=== PATIENT | female | born 1965 | race Caucasian/White ===

== ENCOUNTER → 2023-06-28 13:27 | Outpatient (BNV) | payer BC, SELFPAY | PROVIDERS: PCP Internal Medicine; Referring Provider Internal Medicine; Visit Provider Internal Medicine Medical Oncology | DX: D50.9 Iron deficiency anemia, unspecified (principal) | CPT/HCPCS: 99204 ==

== ENCOUNTER 2024-04-05 08:33 | Outpatient (REF) | payer BC, SELFPAY ==
--- OUTSIDE RECORDS SUMMARY | 2024-04-05 08:36 | XMS_ITS ---
Author Organization Olvin Lechuga DO [facility] Address [address] [place] [phone] Care Team Providers Care Electric Meter Tester Helper Name Role Phone Olvin Lechuga Primary Care Provider [phone] REASON FOR VISIT Message to self Encounters Encounter Location Date Provider Diagnosis Olvin Lechuga DO, [address]AC[address] [phone] 04/08/2023 Olvin Lechuga PLAN OF TREATMENT No Information
--- OUTSIDE RECORDS SUMMARY | 2024-04-05 08:36 | XMS_ITS | Patient Health Record ---
Author Organization Olvin Lechuga DO, FACP Address [address] [place] [phone] Care Team Providers Care Coal Sample Tester Name Role Phone Olvin Lechuga Primary Care Provider ALLERGIES Allergen (clinical drug ingredient) Drug/Non Drug Allergy documented on EMR Reaction Allergy Type Onset Date Status Penicillin urticaria Drug Allergy Active RESULTS Component Value Reference Range Notes Complete Blood Count Man Dif Reviewed date:06/28/2023 05:18:47 PM Interpretation:Abnormal Performing Lab:[facility], [address] [place] [phone] Notes/Report: White Blood Count 8.5 4.8-10.8 X10*3/uL Red Blood Count 4.78 4.20-5.50 X10*6/uL Hemoglobin 12.1 12.0-16.0 g/dl Hematocrit 38.9 37.0-47.0 % Mean Corpuscular Volume 81.4 80.0-98.0 fL Mean Corpuscular Hemoglobin 25.3 27.0-33.0 pg Mean Corpuscular HGB Conc 31.1 31.0-35.0 g/dl Red Cell Distribution Width 17.8 11.0-16.0 % Platelet Count 280 160-400 X10*3/uL Mean Platelet Volume 9.7 9.4-12.3 fL NRBC Pct Auto 0.0 0.0-0.2 /100WBC NRBC Abs Auto 0.000 0.0-0.012 X10*3/uL Neutrophils Percent Manual 79 45-73 % Band Neutrophils Percent 0 3-5 % Lymphocytes Percent Manual 15 20-40 % Monocytes Percent Manual 5 2-11 % Eosinophils Percent Manual 1 0-4 % Neutrophils Absolute Manual 6.7 2.0-8.3 X10*3 /uL Lymphocytes Absolute Manual 1.3 1.2-4.9 X10*3 /uL Monocytes Absolute Manual 0.4 0.1-1.2 X10*3/u L Eosinophils Absolute Manual 0.1 0.0-0.4 X10*3 /uL Hypersegmented Neutrophils PRESENT Platelet Estimate NORMAL NORMAL Platelet Morphology Comment NORMAL RBC Morphology NOTED Microcytosis 1+ (5-14) Ovalocytes 1+ (5-14) RETIC Reviewed date:06/28/2023 05:18:47 PM Interpretation:Abnormal Performing Lab:[address] [phone] Notes/Report: Reticulocytes Absolute 0.101 0.026-0.095 X10*6/ uL Immature Retic Fraction 17.6 3.0-15.9 % Retic HGB Equivalent 31.2 30.0-35.0 pg Reticulocyte Percent 2.1 0.5-1.8 % Comprehensive Met. Panel Reviewed date:06/28/2023 05:18:47 PM Interpretation:Abnormal Performing Lab:[address] [phone] Notes/Report: Sodium 140 135-145 mmol/L Potassium 4.2 3.3-5.1 mmol/L Slight Hemoly sis Chloride 109 96-108 mmol/L Carbon Dioxide 21 22-29 mmol/L Anion Gap 14 12-20 Blood Urea Nitrogen 14 9-16 mg/dL Creatinine 0.80 0.5-1.4 mg/dL Creatinine Clr Calc Pharmacy 92.9 Provided height and weight: 165.1 cm, 106.5 kg. eGFR (calculated from the MDRD study equation) and eCrCl (calculated from the Cockcroft-Gault equation) are based on different parameters and may not yield comparable results. If eCrCl result is absurd, please check patient's height/weight. Estimated Glomerular Filt Rate > 60 NOTE: For -Haitian individuals, multiply the result by 1.210. Chronic Kidney Disease: Estimated GFR < 60 mL/min/1.73m2 Severe Kidney Disease: Estimated GFR < 15 mL/min/1.73m2 Glucose Random 127 60-115 mg/dL Calcium 9.3 8.4-10.2 mg/dL Bilirubin Total 0.2 0.0-1.0 mg/dL Aspartate Amino Transferase 23 5-31 U/L Slight Hemolysis Alanine Aminotransferase 23 0-31 U/L Total Protein 7.2 6.5-8.0 g/dL Albumin Level 4.2 3.5-5.0 g/dL Alkaline Phosphatase 79 39-117 U/L IRON PROFILE Reviewed date:06/28/2023 05:18:47 PM Interpretation:Normal Performing Lab:[facility], [address] [place] [phone] Notes/Report: Iron 52 30-160 mcg/dL Total Iron Binding Capacity 347 228-428 mcg/d L Percent Iron Saturation 15 15-50 % Unsaturated Iron Binding 295 Ferritin Reviewed date:06/28/2023 05:18:47 PM Interpretation:Normal Performing Lab:[facility], [address] [place] [phone] Notes/Report: Ferritin 17 10-250 ng/mL Lactate Dehydrogenase Reviewed date:06/28/2023 05:18:47 PM Interpretation:Abnormal Performing Lab:[facility], [address] [place] [phone] Notes/Report: Lactate Dehydrogenase 274 122-220 U/L Slight Hemolysis Vitamin B12 and Folate Reviewed date:06/28/2023 05:18:47 PM Interpretation:Normal Performing Lab:[facility], [address] [place] [phone] Notes/Report: Vitamin B12 > 2000 200-900 pg/mL NORMAL 200-900 PG/ML INDETERMINATE 160-199 PG/ML DEFICIENT < 160 PG/ML Folate 11.1 > or = 4.0 ng/mL Reference Values: > or = 4.0 ng/mL < 4.0 ng/mL suggests folate deficiency Methotrexate, aminopterin and folinic acid (leucovorin) are chemotherapeutic agents whose molecular structures are similar to folate; therefore, the Personal Financial Counselor folate assay cannot be used for patients using these drugs. Transglutaminase IgA Reviewed date:06/29/2023 02:23:07 PM Interpretation:Negative Performing Lab:[facility], [address] [place] [phone] Notes/Report: Transglutaminase IgA <1.0 Value Interpretation ----- <15.0 Antibody not detected > or = 15.0 Antibody detected THIS TEST WAS PERFORMED AT: [facility] [address] [place] [phone] PAOLA ACHARYA MD REASON FOR REFERRAL Reason anemia Diagnosis 1 Iron deficiency anem ia, unspecified (D50.9) Diagnosis 2 Celiac disease (K90. 0) Referral Organization Olvin Herrera FACP Referring Provider First Name Olvin Referring Provider Last Name Ankush Referring Provider Speciality Internal edicine Referred Provider Brina Sequeira Referred Provider Specialty Hematology/O ncology General Notes Sara Macdonald 4 02:39:23 PM EST > Referral and notes faxed and they will contact patient per their office protocal. Patient is aware Referral Priority Routine Referral Appointment Date 04/23/2023 Reason Recurrent Iron Defic iency Anemia Diagnosis 1 Iron deficiency anem ia, unspecified (D50.9) Referral Organization Olvin Herrera FACP Referring Provider First Name Olvin Referring Provider Last Name Ankush Referring Provider Speciality Internal M edicine Referred Provider Jeffrey Ray Referred Provider Specialty Gastroentero logy General Notes PageSara 4 02:40:06 PM EST > Referral and notes faxed and per their office protocal the patient needs to contac that office for appointment and patient is aware. Referral Priority Routine Referral Appointment Date 04/30/2023 MEDICATIONS Medication SIG (Take, Route, Frequency, Duration) Notes Start Date End Date Status Ferrous Fumarate 325 (106 Fe) MG 1 tablet Orally Twice a day Active ARIPiprazole 30 MG 1 tablet Orally Once a day Active ALPRAZolam 0.5 MG 1 tablet at bedtime as needed Orally Once a day Active IMMUNIZATIONS Vaccine Route Administration Date Status Comme nts Influenza Quad IM Intramuscular 04/18/2017 Administered Influenza Quad Unknown 01/11/2020 Administered COVID-19 Moderna Vaccine Unknown 02/23/2021 Administere d COVID-19 Pfizer BioNTech Unknown 08/11/2021 Administere d COVID-19 Pfizer BioNTech Unknown 05/22/2020 Administere d Influenza Quad Unknown 12/16/2021 Administered COVID-19 Moderna Bivalent Unknown 12/16/2021 Administer ed COVID-19 Pfizer BioNTech Unknown 04/30/2020 Administere d Influenza Unknown 03/15/2016 Refused SOCIAL HISTORY Tobacco Use: Social History Observation Description Date Details (start date - stop date) Never Smoker NA - NA Sex Assigned At : Social History Observation Description Sex Assigned At Unknown Tobacco Use/Smoking Question Answer Notes Patient is a nonsmoker Additional Findings: Tobacco Non-User Cu rrent non-smoker, currently using no form of tobacco Alcohol Screen Question Answer Notes Did you have a drink contain ing alcohol in the past year? Yes How often did you have a dri nk containing alcohol in the past year? 2 to 4 times a month (2 points) How many drinks did you have on a typical day when you were drinking in the past year? 1 or 2 drinks (0 point) How often did you have 6 or more drinks on one occasion in the past year? Never (0 point) Points 2 Interpretation Negative PROBLEMS Problem Type ICD Code Onset Dates Problem Status W/U Status Risk SNOMED Code Notes Problem Iron deficiency anemia, unspecified (D50.9) Active confirmed Iron deficiency anemia (09403635) Problem Morbid (severe) obesity due to excess calories (E66.01) Active confirmed [id number] Problem Celiac disease (K90.0) Active confirmed Celiac disease (883892236) Problem Non morbid obesity d ue to excess calories (E66.09) Active confirmed Obesity (165132249) Problem Iron deficiency anemia, unspecified iron deficiency anemia type (D50.9) Active confirmed 09724208 Problem Hypercholesterolemia (E78.00) Active confirmed 18698715 Problem Bipolar 1 disorder, manic, full remission (F31.74) Active confirmed 29730690 Problem Celiac disease/sprue (K90.0) Active confirmed 520397471 Problem Body mass index [BMI ] 40.0-44.9, adult (Z68.41) Active confirmed 326501523 VITAL SIGNS Blood pressure diastolic 70 mm Hg 04/17/2023 Height 64.25 in 04/17/2023 Blood pressure systolic 130 mm Hg 04/17/2023 Weight 246 lbs 04/17/2023 BMI 41.89 kg/m2 04/17/2023 Encounters Encounter Location Date Provider Diagnosis Olvin Lechuga DO, FACP [address] [place] [phone] 04/17/2023 Olvin Lechuga Encounter for genera l adult medical examination without abnormal findings Z00.00 ; Iron deficiency anemia, unspecified iron deficiency anemia type D50.9 ; Celiac disease/sprue K90.0 ; Hypercholesterolemia E78.00 ; Morbid (severe) obesity due to excess calories E66.01 ; Body mass index [BMI] 40.0-44.9, adult Z68.41 and Bipolar 1 disorder, manic, full remission F31.74 Olvin Lechuga DO, [facility] [address] [place], [place] [phone] 10/10/2023 Olvin Lechuga DO, [facility] [address] [place], [place] [phone] 04/08/2023 Olvin Lechuga ASSESSMENTS Encounter Date Diagnosis Assessment Notes Treatment Notes Treatment Clinical Notes 04/17/2023 Encounter for genera l adult medical examination without abnormal findings (ICD-10 - Z00.00) 04/17/2023 Iron deficiency anem ia, unspecified iron deficiency anemia type (ICD-10 - D50.9) Heme/Onc referral to Dr. Sequeira 04/17/2023 Celiac disease/sprue (ICD-10 - K90.0) GI referral to Dr. Ray 04/17/2023 Hypercholesterolemia (ICD-10 - E78.00) Low cholesterol diet 04/17/2023 Morbid (severe) obes ity due to excess calories (ICD-10 - E66.01) Diet, portion control, exercise, weight loss. Advised to lose 15 pounds. Advised to limit carbohydrates and avoid sweets 04/17/2023 Body mass index [BMI ] 40.0-44.9, adult (ICD-10 - Z68.41) Diet, exercise, weight loss 04/17/2023 Bipolar 1 disorder, manic, full remission (ICD-10 - F31.74) PLAN OF TREATMENT Pending Test Test Name Order Date MAMMOGRAM DIGITAL BILATERAL SCREEN G0202 04/17/2023 Insurance Providers Payer Name Payer Address Payer Phone Subscriber Number Group Number Insured Name Patient Relationship to Insured Coverage Start Date Coverage End Date [facility] [address] [place], [place] [phone] [id number] Ирина Luna Self - patient is the insured MEDICAL (GENERAL) HISTORY Medical History History ICD Code bipolar affective disorder obesity hypercholesterolemia Iron deficiency anemia, unspecified iron deficiency anemia type D50.9 celiac sprue Surgical History Surgery Date(Month/Year) wisdom teeth extraction cervical cryotherapy due to cervical dys plasia
--- OUTSIDE RECORDS SUMMARY | 2024-04-05 08:36 | XMS_ITS ---
Author Organization Olvin Lechuga DO, FACP Address [address] [place] [phone] Care Team Providers Care Front Maker Name Role Phone Olvin Lechuga Primary Care Provider REASON FOR VISIT 6 month f/u Encounters Encounter Location Date Provider Diagnosis Olvin Lechuga DO [address] [phone] 10/10/2023 Olvin Lechuga PLAN OF TREATMENT No Information
--- OUTSIDE RECORDS SUMMARY | 2024-04-05 08:37 | XMS_ITS ---
Author Organization Olvin Lechuga DO, FACP Address [address] [place], [place] [phone] Care Team Providers Care Drop Pit Worker Name Role Phone Olvin Lechuga Primary Care Provider [phone] ALLERGIES Allergen (clinical drug ingredient) Drug/Non Drug Allergy documented on EMR Reaction Allergy Type Onset Date Status Penicillin urticaria Drug Allergy Active REASON FOR VISIT physical, annual visit MEDICATIONS Medication SIG (Take, Route, Frequency, Duration) Notes Start Date End Date Status Ferrous Fumarate 325 (106 Fe) MG 1 tablet Orally Twice a day Active ARIPiprazole 30 MG 1 tablet Orally Once a day Active ALPRAZolam 0.5 MG 1 tablet at bedtime as needed Orally Once a day Active SOCIAL HISTORY Tobacco Use: Social History Observation [...] W/U Status Risk SNOMED Code Notes Problem Morbid (severe) obesity due to excess calories (E66.01) Active confirmed [id number] Problem Body mass index [BMI] 40.0-44.9, adult (Z68.41) Active confirmed 222751439 VITAL SIGNS BMI 41.89 kg/m2 04/17/2023 Blood pressure systolic 130 mm Hg 04/17/19 24 Blood pressure diastolic 70 mm Hg 024 Height 64.25 in 04/17/2023 Weight 246 lbs 04/17/2023 Encounters Encounter Location Date Provider Diagnosis Olvin Lechuga , [address] [phone] 04/17/2023 Olvin Lechuga Encounter for genera l adult medical examination without abnormal findings Z00.00 ; Iron deficiency anemia, unspecified iron deficiency anemia type D50.9 ; Celiac disease/sprue K90.0 ; Hypercholesterolemia E78.00 ; Morbid (severe) obesity due to excess calories E66.01 ; Body mass index [BMI] 40.0-44.9, adult Z68.41 and Bipolar 1 disorder, manic, full remission F31.74 ASSESSMENTS Encounter Date Diagnosis Assessment Notes Treatment [...] remission (ICD-10 - F31.74) PLAN OF TREATMENT Medication Medication Name Sig Start Date Stop Date Notes Ferrous Fumarate 325 (106 Fe) MG 1 table t Orally Twice a day ARIPiprazole 30 MG 1 tablet Orally Once a day ALPRAZolam 0.5 MG 1 tablet at bedtime as needed Orally Once a day Treatment Notes Assessment Notes Iron deficiency anemia, unsp ecified iron deficiency anemia type Heme/Onc referral to Dr. Sequeira Celiac disease/sprue GI referral to Dr. Ray Hypercholesterolemia Low cholesterol t Morbid (severe) obesity due to excess ca lories Diet, portion control, exercise, weight loss. Advised to lose 15 pounds. Advised to limit carbohydrates and avoid sweets Body mass index [BMI] 40.0-44.9, adult D iet, exercise, weight loss Pending Test Test Name Order Date MAMMOGRAM DIGITAL BILATERAL SCREEN G0202 04/17/2023 Next Appt Details Follow Up: 6 Months, Reason: follow up visit Progress Notes * Examination Category Sub-Category Detail Notes General Examination GENERAL APPEARANCE: well dev eloped, well nourished, in no acute distress HEAD: normocephalic, atrau matic EYES: pupils equal, round, reactive to light and accommodation, sclera non-icteric EARS: normal THROAT: clear NECK/THYROID: neck supple, full ra nge of motion, no cervical lymphadenopathy, thyroid normal, no carotid bruit HEART: regular rate and rhy thm, S1, S2 normal, no murmurs LUNGS: clear to auscultatio n bilaterally ABDOMEN: soft, nontender, non distended, bowel sounds present, normal NEUROLOGIC: nonfocal, motor stre ngth normal upper and lower extremities, sensory exam intact SKIN: warm and dry EXTREMITIES: no edema PERIPHERAL PULSES: 2+ dorsalis pedis, 2 + posterior tibial BREASTS: per LINER WORKER PSYCH: alert, oriented, cog nitive function intact FEMALE GENITOURINARY: per LINER WORKER ORAL CAVITY: mucosa moist History and Physical Notes * HPI (History of Present Illness) Category Sub-Category Detail Notes Depression Screening PHQ-9 Little inte rest or pleasure in doing things: Not at all Feeling down, depressed, or hopeless: No t at all Trouble falling or staying asleep, or sl eeping too much: Not at all Feeling tired or having little energy: N ot at all Poor appetite or overeating: Not at all Feeling bad about yourself o r that you are a failure, or have let yourself or your family down: Not at all Trouble concentrating on thi ngs, such as reading the newspaper or watching television: Not at all Moving or speaking so slowly that other people could have noticed; or the opposite, being so fidgety or restless that you have been moving around a lot more than usual: Not at all Thoughts that you would be b aster off or of hurting yourself in some way: Not at all Total Score: 0 Interpretation and Intervention Depression Ben zimmerman Findings: Negative Follow-Up for Depression: : Review of PH Q-9 found negative result; no follow-up needed Fall Risk Fall History Have you had two or more fal ls in the past year?: No Have you had any falls with injury in th e past year?: No Fall Risk Assessment:: No falls in the p ast year Communication Needs PCMH Communication Needs - PCM Silverio severino Impairment?: No Vision Impairment?: Yes wears glasses fo r distance Cognitive Impairment?: No SDOH Questions SDOH Questions In the past year have you been worried about losing your housing?: No In the past year have you or any family members you live with been unable to get any of the following when it was really needed? Check all that apply:: None
[2024-04-05 11:15] LABS: MANUAL DIFF FLAG NO
[2024-04-05 11:18] LABS: Basophils Percent Auto 0.7 % (0-2); Eosinophils Absolute Auto 0.2 X10*3/uL (0.0-0.4); Eosinophils Percent Auto 3.5 % (0-4); Hematocrit 42.1 % (37.0-47.0); Hemoglobin 13.3 g/dl (12.0-16.0); Imm Gran Abs Auto 0.01 X10*3/uL (0.00-0.03); Imm Gran Pct Auto 0.2 % (0.0-0.4); Lymphocytes Percent Auto 17.1 % (20-40); Mean Corpuscular HGB Conc 31.6 g/dl (31.0-35.0); Mean Corpuscular Hemoglobin 28.7 pg (27.0-33.0); Mean Corpuscular Volume 90.9 fL (80.0-98.0); Mean Platelet Volume 9.5 fL (9.4-12.3); Monocytes Absolute Auto 0.5 X10*3/uL (0.1-1.2); Monocytes Percent Auto 7.9 % (2-11); Neutrophils Absolute Auto 4.2 x10*3/uL (2.0-8.3); Neutrophils Percent Auto 70.6 % (45-73); Platelet Count 271 X10*3/uL (160-400); Red Blood Count 4.63 X10*6/uL (4.20-5.50); Red Cell Distribution Width 15.2 % (11.0-16.0)
[2024-04-05 11:31] LABS: Estimated Average Glucose 88 mg/dL; Hemoglobin A1C 98.6978 umol/L; Hemoglobin A1c % 4.7 % (<6.0); Total Hemoglobin (HGBA1C) 3499.2098 umol/L
[2024-04-05 11:53] LABS: Alanine Aminotransferase 26 U/L (0-31); Albumin Level 4.2 g/dL (3.5-5.0); Alkaline Phosphatase 68 U/L (39-117); Anion Gap 12 (12-20); Aspartate Amino Transferase 22 U/L (5-31); Bilirubin Direct 0.1 mg/dL (0.0-0.5); Bilirubin Total 0.3 mg/dL (0.0-1.0); Blood Urea Nitrogen 13 mg/dL (9-16); Calcium 9.7 mg/dL (8.4-10.2); Carbon Dioxide 28 mmol/L (22-29); Chloride 109 mmol/L (96-108); Cholesterol 201 mg/dL (<200); Estimated Glomerular Filt Rate > 60; Glucose Fasting 88 mg/dL (60-99); HDL Cholesterol 57 mg/dL (>40); LDL Cholesterol Calculated 122 mg/dL (<100); Magnesium 2.2 mg/dL (1.6-2.6); Potassium 4.5 mmol/L (3.3-5.1); Sodium 144 mmol/L (135-145); Total Protein 7.3 g/dL (6.5-8.0); Triglycerides 114 mg/dL (<150)
[2024-04-05 11:55] LABS: TSH reflex Free T4 2.16 uIU/mL (0.32-4.0); Vitamin D 25-OH Total 38.9 ng/mL (>30)
[2024-04-05 12:13] LABS: Folate 8.1 ng/mL (> or = 4.0); Vitamin B12 1651 pg/mL (200-900)
== END 2024-04-05 08:34 | disposition home or self-care (01) ==
LOC: HO.HMGCLDS 08:33
PROVIDERS: PCP Internal Medicine; Visit Provider Physician Assistant Medical
DX: Z00.00 Encounter for general adult medical examination without abnormal findings (principal); Z13.1 Encounter for screening for diabetes mellitus; Z13.0 Encounter for screening for diseases of the blood and blood-forming organs and certain disorders involving the immune mechanism; Z13.220 Encounter for screening for lipoid disorders; Z13.29 Encounter for screening for other suspected endocrine disorder
CPT/HCPCS: 36415; 80053; 80061; 80076; 82306; 82607; 82746; 83036; 83735; 84443; 85025

== ENCOUNTER 2024-04-23 12:53 | Outpatient (AMB) | payer BC, SELFPAY ==
--- NOTE | 2024-04-23 12:46 | MHC.PC.OV ---
Vital Signs 04/23/24 12:48 Height 5 ft 4.25 in Weight 238 lb BMI 40.5 BP 152/82 H Blood Pressure Location Lt brachial Pulse 76 Pulse Source Pulse Oximeter Temp 97.3 F Pulse Oximetry (%) 99 Intake Visit Reasons: physical Intake Note: no other issues Allergies Penicillins Allergy (Intermediate, Verified 04/23/24 13:13) Hives Medication List - Last Reconciled 04/23/24 by Keesha Leyva PA-C alprazolam 0.5 mg PO DAILY PRN aripiprazole 30 mg PO DAILY ferrous sulfate 325 mg PO DAILY PFSH Medical History (Updated 04/23/24 @ 13:19 by Keesha Leyva PA-C) Morbid obesity Annual physical exam Elevated blood pressure reading History of mammogram (~03/16/22) Cervical dysplasia Bipolar affective disorder in full remission Hyperlipidemia Iron deficiency anemia Hypercholesteremia Surgical History History of colonoscopy (~05/03/17) H/O wisdom tooth extraction Family History Brother CHF (congestive heart failure) Diabetes mellitus Father Mother Social History Household Members: Family Patient Tobacco Use Status: Never used Tobacco service: No Current occupational status: employed Physical exam (Primary Care) Vital Signs: Last Vital Signs Temp 97.3 F 04/23/24 12:48 Pulse 76 04/23/24 12:48 BP 152/82 H 04/23/24 12:48 Pulse Ox 99 04/23/24 12:48 Care Plan Goal for BP management: 130/80. Will keep a diary for the next 2 weeks at home and monitor her blood pressure. She will return in 2 weeks with the readings of her blood pressure BMI result Body Mass Index 40.5 BMI Assessment/Plan discussion: High (Patient will improve her diet and exercise regimen.) BMI High, discussed plan: lifestyle, weight reduction, dietary, physical activity and alcohol moderation Tobacco/Smoking Status: Tobacco use Status Patient Tobacco Use Status Never used Tobacco 04/23/24 12:52 Coding Level of Care Code New Pt Prev Care 40-64y(69868) Diagnoses Bipolar affective disorder in full remission F31.70 Iron deficiency anemia D50.9 Hyperlipidemia E78.5 Hypercholesteremia E78.00 Microcytic hypochromic anemia D50.9 Elevated blood pressure reading R03.0 Annual physical exam Z00.00 Morbid obesity E66.01 Assessment & Plan Assessment & Plan (1) Bipolar affective disorder in full remission: Code(s): F31.70 - Bipolar disorder, currently in remission, most recent episode unspecified Category: Medical Plan: Patient to continue aripiprazole 30 mg daily. Condition is chronic and stable continue to monitor. (2) Iron deficiency anemia: Code(s): D50.9 - Iron deficiency anemia, unspecified Category: Medical Plan: Patient to continue ferrous sulfate 325 mg daily. Last H&H was normal on 04/05/2024. Patient had normal iron studies on 06/28/2023. Condition is chronic and stable continue current regimen. (3) Hyperlipidemia: Code(s): E78.5 - Hyperlipidemia, unspecified Category: Medical Plan: LDL goal <100. Last LDL was 122 on 04/05/2024. Total cholesterol 201 goal <200. Patient declining lower cholesterol medication at this time would like to improve her diet and exercise regimen. Patient will also improve her fiber intake. Condition is chronic and stable will continue to monitor (4) Hypercholesteremia: Code(s): E78.00 - Pure hypercholesterolemia, unspecified Category: Medical Plan: LDL goal <100. Last LDL was 122 on 04/05/2024. Total cholesterol 201 goal <200. Patient declining lower cholesterol medication at this time would like to improve her diet and exercise regimen. Patient will also improve her fiber intake. Condition is chronic and stable will continue to monitor. (5) Microcytic hypochromic anemia: Code(s): D50.9 - Iron deficiency anemia, unspecified Category: Medical Plan: Patient to continue ferrous sulfate 325 mg daily. Last H&H was normal on 04/05/2024. Patient had normal iron studies on 06/28/2023. Condition is chronic and stable continue current regimen. (6) Elevated blood pressure reading: Code(s): R03.0 - Elevated blood-pressure reading, without diagnosis of hypertension Category: Medical Plan: Blood pressure noted to be elevated today. Patient denies any cardiac related complaints. Patient will return in 2 weeks for blood pressure check. She will buy a blood pressure monitor and monitor her blood pressure daily or every other day and bring a diary back. Patient understands agrees with this plan. Will continue to monitor. (7) Annual physical exam: Code(s): Z00.00 - Encounter for general adult medical examination without abnormal findings Category: Medical (8) Morbid obesity: Code(s): E66.01 - Morbid (severe) obesity due to excess calories Category: Medical Plan: Patient to improve her diet and exercise regimen. Condition is chronic and stable continue to monitor. Plan Plan The elevated blood pressure reading noted today will be managed by initiating home blood pressure monitoring, to determine if it persists before considering antihypertensives. For hyperlipidemia, dietary measures such as increasing fiber intake and lifestyle adjustments will be the focus, postponing pharmacotherapy as cholesterol elevations are borderline. The patient's iron deficiency anemia is being managed with supplement use, and she reports some resultant changes in stool consistency; increasing dietary fiber as a non-pharmacological intervention was advocated. Management for generalized anxiety disorder remains unchanged and successful, with bipolar disorder stable and in remission. Reassessment of levels will continue, especially since previous levels were notably high. Regular monitoring and reassessment of these plans will continue on a follow-up basis, as well follow-up for the elevated cholesterol. Patient Instructions: Patient Instructions - Monitor blood pressure at home twice daily for two weeks; log the results. - Return for follow-up in two weeks with logged blood pressure results. - Increase dietary intake of high-fiber foods such as vegetables, fruits, and whole grains to help manage cholesterol and address gastrointestinal symptoms. - Continue current medications, adjusting vitamin B12 intake to a once-weekly schedule. - Contact the office if experiencing new or concerning symptoms, including chest pain or significantly elevated blood pressure readings. Scribe Plan - Not visible on output: History of Present Illness The patient is a 58-year-old female presenting for her annual physical examination. Her medical history reveals bipolar disorder managed and in full remission, generalized anxiety disorder, and iron deficiency anemia for which she receives iron supplementation. Recently, she has been diagnosed with hyperlipidemia, with her cholesterol being slightly above optimal levels, a deviation from her previous results. The patient had a colonoscopy in 2018 with a 10-year follow-up interval. Celiac disease was previously listed but tests confirmed incompatibility, negating its diagnosis. The patient noted gastrointestinal changes since commencing iron supplements, manifesting as loose stools. She is addressing this by including more dietary fiber. A single elevated blood pressure reading was documented today, potentially influenced by pre-visit activity, warranting home monitoring. Notably, other lab tests demonstrated normal ranges, dismissing additional concerns regarding blood glucose and diabetes. Additionally, the patient?s multivitamin regimen is being adjusted due to a previously elevated Vitamin B12 level. 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 - Family: , no children of her own, two stepchildren from her 's previous marriage. - Activity: Engages in exercise and is considering dietary changes to manage cholesterol and overall health. - Nutrition: Increasing intake of high-fiber foods to manage gastrointestinal symptoms potentially related to iron supplementation. Review of Systems - Gastrointestinal: Reports loose stools since starting iron supplements. - Cardiovascular: Denies chest pain, reports no chest pains or any symptoms of cardiovascular concerns beyond the noted elevated blood pressure. Physical Exam Appearance: Alert. Oriented X3. No acute distress. Head: Normal external exam. Normocephalic. Atraumatic. Eyes: Pupils are equal, round, and reactive to light. Extraocular movements intact. Conjunctiva and sclera normal. Eyelids normal. Ears: External auditory canal normal. Tympanic membranes normal. Throat: Pharynx normal. Uvula midline. Moist mucous membranes. Neck: Normal inspection. Neck supple. Full range of motion. No adenopathy. Thyroid Normal. No meningeal signs. No neck mass noted. Cardiovascular: Normal heart rate and rhythm. Heart sound normal. No murmurs noted. Pulses normal throughout. Respiratory: No respiratory distress. Painless inspiration. Breath sounds normal. No wheezes/rales/rhonchi noted. Chest nontender. No accessory muscle usage noted or decreased air movement noted. Abdomen: Soft and nontender. Bowel sounds normal in all 4 quadrants. No distention noted. No organomegaly noted. No visible injury noted. Back: No costovertebral angle tenderness. Full range of motion noted. Skin: Skin warm and dry. Normal skin color. Normal skin turgor. No rashes/lesions/lacerations noted. Extremities: No lower extremity edema. Extremities exhibit normal range of motion. Extremities nontender. Neuro: Oriented X 3. No motor deficit. No sensory deficit. Reflexes normal. Results - Labs: CBC normal, no evidence of anemia. Chemistry panel normal including fasting glucose and A1c indicating no diabetes. Cholesterol levels slightly above optimal with total cholesterol 201 mg/dL and LDL 122 mg/dL. Thyroid function, Vitamin B12, D, and folate normal. Patient was informed and verbally consented to the use of an ambient scribe for clinic note documentation during this visit. Discussion Notes During our discussion, I advised the patient on initiating home blood pressure monitoring due to a single elevated reading today, and the importance of accurate logging of these values for the next two weeks. We also discussed her hyperlipidemia, with suggestions for dietary and lifestyle changes to manage these levels conservatively at this time without starting medication. The patient expressed her preference for a non-pharmacological approach to her cholesterol management. For her gastrointestinal concerns associated with iron supplementation, I reassured her that her approach of increasing fiber intake is appropriate. A follow-up appointment is scheduled in two weeks to reassess blood pressure and overall progress on dietary changes. Additionally, the importance of periodic monitoring of her vitamin B12 levels was emphasized due to a history of elevated readings, with a continuation of a reduced dosage being beneficial.
[2024-04-23 12:48] VITALS: BP 152/82; PULSE 76; TEMP 36.3; O2SAT 99; BMI 40.5
--- OUTSIDE RECORDS SUMMARY | 2024-04-23 15:45 | XMS_ITS ---
Author Organization Olvin Lechuga DO, FACP Address [address] [place] [phone] Care Team Providers Care Inorganic Chemist Name Role Phone Olvin Lechuga Primary Care Provider [phone] REASON FOR VISIT 6 month f/u Encounters Encounter Location Date Provider Diagnosis Olvin Lechuga DO [facility] [phone] 10/10/2023 Olvin Lechuga PLAN OF TREATMENT No Information
--- OUTSIDE RECORDS SUMMARY | 2024-04-23 15:46 | XMS_ITS | Patient Health Record ---
Author Organization Olvin Lechuga DO, FACP Address [address] [place] [id number] Care Team Providers Care Retail Banking Manager Name Role Phone Olvin Lechuga Primary Care Provider [phone] ALLERGIES Allergen (clinical drug ingredient) Drug/Non Drug Allergy documented on EMR Reaction Allergy Type Onset Date Status Penicillin urticaria Drug Allergy Active RESULTS Component Value Reference Range Notes Complete Blood Count Man Dif Reviewed date:06/28/2023 05:18:47 PM Interpretation:Abnormal Performing Lab:[facility], [address] [place] [phone] Notes/Report: White Blood Count 8.5 4.8-10.8 X10*3/uL [...] RETIC Reviewed date:06/28/2023 05:18:47 PM Interpretation:Abnormal Performing Lab:[address] [phone] Notes/Report: Reticulocytes Absolute 0.101 0.026-0.095 X10*6/ uL Immature Retic Fraction 17.6 3.0-15.9 % Retic HGB Equivalent 31.2 30.0-35.0 pg Reticulocyte Percent 2.1 0.5-1.8 % Comprehensive Met. Panel Reviewed date:06/28/2023 05:18:47 PM Interpretation:Abnormal Performing Lab:[address] [phone] Notes/Report: Sodium 140 135-145 mmol/L Potassium 4.2 [...] Glomerular Filt Rate > 60 NOTE: For -Guyanese individuals, multiply the result by 1.210. Chronic [...] PROFILE Reviewed date:06/28/2023 05:18:47 PM Interpretation:Normal Performing Lab:[facility], [address] [place] [phone] Notes/Report: Iron 52 30-160 mcg/dL Total Iron Binding Capacity 347 228-428 mcg/d L Percent Iron Saturation 15 15-50 % Unsaturated Iron Binding 295 Ferritin Reviewed date:06/28/2023 05:18:47 PM Interpretation:Normal Performing Lab:[facility], [address] [place] [phone] Notes/Report: Ferritin 17 10-250 ng/mL Lactate Dehydrogenase Reviewed date:06/28/2023 05:18:47 PM Interpretation:Abnormal Performing Lab:[facility], [address] [place] [phone] Notes/Report: Lactate Dehydrogenase 274 122-220 U/L Slight Hemolysis Vitamin B12 and Folate Reviewed date:06/28/2023 05:18:47 PM Interpretation:Normal Performing Lab:[facility], [address] [place] [phone] Notes/Report: Vitamin B12 > 2000 200-900 pg/mL NORMAL 200-900 PG/ML INDETERMINATE 160-199 PG/ML DEFICIENT < 160 PG/ML Folate 11.1 > or = 4.0 ng/mL Reference Values: > or = 4.0 ng/mL < 4.0 ng/mL suggests folate deficiency Methotrexate, aminopterin and folinic acid (leucovorin) are chemotherapeutic agents whose molecular structures are similar to folate; therefore, the Molder Operator folate assay cannot be used for patients using these drugs. Transglutaminase IgA Reviewed date:06/29/2023 02:23:07 PM Interpretation:Negative Performing Lab:[facility], [address] [place] [phone] Notes/Report: Transglutaminase IgA <1.0 Value Interpretation ----- <15.0 Antibody not detected > or = 15.0 Antibody detected THIS TEST WAS PERFORMED AT: [facility] [address] [place] [phone] PAOLA ACHARYA MD REASON FOR REFERRAL No Information MEDICATIONS Medication SIG (Take, Route, Frequency, Duration) [...] unspecified (D50.9) Active confirmed Iron deficiency anemia (02935946) Problem Morbid (severe) obesity due to excess calories (E66.01) Active confirmed [id number] Problem Celiac disease (K90.0) Active confirmed Celiac disease (915769321) Problem Non morbid obesity d ue to excess calories (E66.09) Active confirmed Obesity (572219104) Problem Iron deficiency anemia, unspecified iron deficiency anemia type (D50.9) Active confirmed 84916606 Problem Hypercholesterolemia (E78.00) Active confirmed 10696494 Problem Bipolar 1 disorder, manic, full remission (F31.74) Active confirmed 91004388 Problem Celiac disease/sprue (K90.0) Active confirmed 654322338 Problem Body mass index [BMI ] 40.0-44.9, adult (Z68.41) Active confirmed 273106915 Encounters Encounter Location Date Provider Diagnosis Olvin Lechuga DO, [facility] [address] [place], [place] [phone] 04/23/2024 Olvin Lechuga DO, [facility] [address], [place] [phone] 10/10/2023 Olvin Lechuga PLAN OF TREATMENT Pending Test Test Name Order Date MAMMOGRAM DIGITAL BILATERAL SCREEN G0202 04/17/2023 Insurance Providers Payer Name Payer Address Payer Phone Subscriber Number Group Number Insured Name Patient Relationship to Insured Coverage Start Date Coverage End Date [facility] [address] [place], [place] [id number] Ирина Tyson Self - patient is the insured MEDICAL (GENERAL) HISTORY Medical History History ICD Code bipolar affective disorder obesity hypercholesterolemia Iron deficiency anemia, unspecified iron deficiency anemia type D50.9 celiac sprue Surgical History Surgery Date(Month/Year) wisdom teeth extraction cervical cryotherapy due to cervical dys plasia
--- OUTSIDE RECORDS SUMMARY | 2024-04-23 15:46 | XMS_ITS ---
Author Organization Olvin Lechuga DO, FACP Address [address] [place] [phone] Care Team Providers Care Rn Medication Name Role Phone Olvin Lechuga Primary Care Provider Encounters Encounter Location Date Provider Diagnosis Olvin Lechuga DO, FACP [address] [place] [phone] 04/23/2024 Olvin Lechuga PLAN OF TREATMENT No Information
--- OUTSIDE RECORDS SUMMARY | 2024-04-23 15:46 | XMS_ITS ---
Author Organization Olvin Lechuga DO, FACP Address [address] [place], [place] [phone] Care Team Providers Care Rn Care Manager Name Role Phone Olvin Lechuga Primary [...] due to excess calories (E66.01) Active confirmed [id number] Problem Body mass index [BMI] 40.0-44.9, adult (Z68.41) Active confirmed 294580965 VITAL SIGNS BMI 41.89 kg/m2 04/17/2023 Blood pressure systolic 130 mm Hg 04/17/19 24 Blood pressure diastolic 70 mm Hg 024 Height 64.25 in 04/17/2023 Weight 246 lbs 04/17/2023 Encounters Encounter Location Date Provider Diagnosis Olvin Lechuga , [address] [phone] 04/17/2023 Olvin Lechuga Encounter for genera l [...] pedis, 2 + posterior tibial BREASTS: per IT APPLICATIONS DEVELOPER PSYCH: alert, oriented, cog nitive function intact FEMALE GENITOURINARY: per IT APPLICATIONS DEVELOPER ORAL CAVITY: mucosa moist History and Physical [...]
== END 2024-04-23 13:06 | disposition home or self-care (01) ==
LOC: HO.HMCSH 12:53
PROVIDERS: PCP Internal Medicine; Visit Provider Physician Assistant Medical
DX: F31.70 Bipolar disorder, currently in remission, most recent episode unspecified (principal); D50.9 Iron deficiency anemia, unspecified; E78.5 Hyperlipidemia, unspecified; E78.00 Pure hypercholesterolemia, unspecified; R03.0 Elevated blood-pressure reading, without diagnosis of hypertension; Z00.00 Encounter for general adult medical examination without abnormal findings; E66.01 Morbid (severe) obesity due to excess calories

== ENCOUNTER → 2024-04-23 12:53 | Outpatient (BNVA) | payer BC, SELFPAY | PROVIDERS: PCP Internal Medicine; Visit Provider Physician Assistant Medical ==

== ENCOUNTER 2024-11-11 11:00 | Outpatient (AMB) | payer BC, SELFPAY ==
[2024-11-11 11:01] VITALS: BP 126/88; PULSE 79; RESP 16; TEMP 36.7; O2SAT 99; BMI 40.2
--- NOTE | 2024-11-11 11:01 | AM.OFFWIN_ITS ---
Intake Vital Signs 11/11/24 11:01 Height 5 ft 4.25 in Weight 236 lb BMI 40.2 BP 126/88 Blood Pressure Location Lt brachial Position Sitting Respiration 16 Pulse 79 Pulse Source Pulse Oximeter Temp 98.0 F Temp Source Oral Pulse Oximetry (%) 99 Oxygen Delivery Method Room Air Intake Visit Reasons: ep tick or wart on back left side Patient Tobacco Use Status: Never used Tobacco Accompanied by: Self / Same As Patient Allergies Penicillins Allergy (Intermediate, Verified 11/11/24 11:03) Hives HPI HPI Comments History of Present Illness Details History - The patient is a 58-year-old female pr esenting with a lump on the back of her left thigh for at least a month. - The lesion was discovered approximatel y one month ago and was initially thought to be a wart or a tick. - The patient reports that the lesion be came inflamed after being picked at, but it has since improved. - Is not painful, does not itch. - The patient has been unable to see her primary care physician about it Physical Exam General: Cooperative, healthy appearing, comfortable, no acute distress and well developed Orientation: Patient oriented x3 Limitations: No limitations Head: Normal to inspection Ears: Hearing grossly normal bilaterally Nose: Normal External nose present Face and sinus: Normal facial exam Mouth: normal, moist oral mucosa Eyes: Appearance normal, both eyes and all related structures Neck: Normal visual inspection and Yes full ROM Respiratory: Normal respiratory effort and able to speak in complete sentences. Skin: 0.3cm flush-colored papule with dark center, no TTP, no drainage, no warmth, no rashes. Neuro: Patient oriented x3, normal gait Extremities: moving all extremities normally [facility] Medical History (Updated 11/11/24 @ 11:13 by Smita Mahmood PA-C) Morbid obesity Annual physical exam Elevated blood pressure reading History of mammogram (~03/16/22) Cervical dysplasia Bipolar affective disorder in full remission Hyperlipidemia Iron deficiency anemia Hypercholesteremia Surgical History History of colonoscopy (~05/03/17) H/O wisdom tooth extraction Family History Brother CHF (congestive heart failure) Diabetes mellitus Father Mother Social History Household Members: Family Patient Tobacco Use Status: Never used Tobacco service: No Current occupational status: employed Review of Systems Const All systems reviewed & are unremarkable except as noted in HPI and below Physical Exam Vital Signs: Last Vital Signs Temp 98.0 F 11/11/24 11:01 Pulse 79 11/11/24 11:01 Resp 16 11/11/24 11:01 BP 126/88 11/11/24 11:01 Pulse Ox 99 11/11/24 11:01 Oxygen Delivery Method Room Air 11/11/24 11:01 BMI result Body Mass Index 40.2 Assessment & Plan Assessment & Plan (1) Skin lesion: Code(s): L98.9 - Disorder of the skin and subcutaneous tissue, unspecified Plan: Plan Patient was informed and verbally consented to the use of an ambient scribe for clinic note documentation during this visit Skin Lesion - Referral to dermatology for further evaluation and possible excision of the lesion. - The patient is advised to contact [facility] in [place] for an appointment. Orders: Referrals Dermatology Referral L98.9 - Disorder of the skin and subcutaneous tissue, unspecified Coding Level of Care Code Est Pt Level 3 (18749) Diagnoses Skin lesion L98.9
--- OUTSIDE RECORDS SUMMARY | 2024-11-11 14:54 | XMS_ITS | Encounter Summary ---
Author Organization [facility] Address [address] [place] [phone] Phone Care Team Providers Care Partner Marketing Intern Name Role Phone Olvin Lechuga DO Primary Care Provider Nessa Agrawal PA-C Unavailable [phone] Nava Painting MD Unavailable [phone] Encounter Details Date Type Department Care Team (Latest Contact Info) Description 10/01/2018 Transcribe Orders [facility] [address] [place] [address] Marissa Mack DO [address] [place] [address] [email or web address] Screening for unspecified condition (Primary Dx) Social History Tobacco Use Types Packs/Day Years Used Date Smoking Tobacco: Never Smokeless Tobacco: Never Alcohol Use Standard Drinks/Week Comments No 0 (1 standard drink = 0.6 oz pur e alcohol) Comments Unknown Sex and Gender Information Value Date Recorded Sex Assigned at Female 09/16/2019 9:38 AM EDT Legal Sex Female 9:41 PM EDT Gender Identity Female 09/16/2019 9:38 AM EDT Sexual Orientation Straight 09/16/2019 9: 39 AM EDT documented as of this encounter Plan of Treatment Not on file documented as of this encounter Visit Diagnoses Diagnosis Screening for unspecified condition- Primary documented in this encounter Care Teams Partner Marketing Intern Relationship Specialty Start Date End Date Olvin Lechuga DO [address] [place] [phone] PCP - General 12/11/16 Nessa Agrawal PA-C [address] [place] [phone] [email or web address] Physician Chilling Hood Operator Hematology 10/15/17 Nava Painting MD [address] [place] [phone] [email or web address] Hematology and Oncology 06/29/20 documented as of this encounter Additional Source Comments The information contained in this document represents components of the legal health record. It is not the complete legal health record.[facility]
--- OUTSIDE RECORDS SUMMARY | 2024-11-11 14:54 | XMS_ITS | Encounter Summary ---
Author Organization [facility] Address [address] [place] [address] Phone Care Team Providers Care Balance Staff Staker Name Role Phone Olvin Lechuga DO Primary Care Provider Nessa Agrawal PA-C Unavailable Nava Painting MD Unavailable [phone] Encounter Details Date Type Department Care Team (Late st Contact Info) Description 02/14/2022 Ancillary [place] [facility] [place] [address] [place] [address] Olvin Lechuga, [address] [place] [address] Screening breast examination Social History Tobacco Use Types Packs/Day Years Used Date Smoking Tobacco: Never Smokeless Tobacco: Never Alcohol Use Standard Drinks/Week Comments Yes 0 (1 standard drink = 0.6 oz pur e alcohol) 1-2 glasses of wine per week Comments Unknown Sex and Gender Information Value Date Recorded Sex Assigned at Female 09/16/2019 9:38 AM EDT Legal Sex Female 9:41 PM EDT Gender Identity Female 09/16/2019 9:38 AM EDT Sexual Orientation Straight 09/16/2019 9: 39 AM EDT documented as of this encounter Plan of Treatment Not on file documented as of this encounter Results * BI MAMMOGRAM SCREENING WITH TOMOSYNTHESIS WITH CAD (BILATERAL) (03/16/2022 4:32 PM EST) Anatomical Region Laterality Modality Breast Left, Breast Right, Breast Bilateral Bila teral Mammography 03/16/2022 5:53 PM EST Impressions 03/16/2022 5:55 PM EST No mammographic evidence of malignancy in either breast. Annual screening mammography is recommended. BI-RADS 1 NEGATIVE The patient will be notified of the results and recommendations. Narrative 03/16/2022 5:55 PM EST BI MAMMOGRAM SCREENING WITH TOMOSYNTHESIS WITH CAD (BILATERAL) Additional patient information: Screening. COMPARISON: Comparison is made with relevant prior imaging. Breast composition: There are scattered areas of fibroglandular density. FINDINGS: No abnormal masses, suspicious calcifications, or other significant findings are identified mammographically in either breast. Procedure Note Farida Medrano MD - 03/16/2022 BI MAMMOGRAM SCREENING WITH TOMOSYNTHESIS WITH CAD (BILATERAL) Additional patient information: Screening. COMPARISON: Comparison is made with relevant prior imaging. Breast composition: There are scattered areas of fibroglandular density. FINDINGS: No abnormal masses, suspicious calcifications, or other significantfindings are identified mammographically in either breast. IMPRESSION: No mammographic evidence of malignancy in either breast. Annual screening mammography is recommended. BI-RADS 1 NEGATIVE The patient will be notified of the results and recommendations. Olvin Lechuga DO IMG MG EXAMS Final Result documented in this encounter Visit Diagnoses Diagnosis Screening breast examination Other screening breast examination Screening breast examination Other screening breast examination documented in this encounter Care Teams Balance Staff Staker Relationship Specialty Start Date End Date Olvin Lechuga DO [address] [place] [address] PCP - General 12/11/16 Nessa Agrawal, PEACEC [address] [place] [email or web address] Physician Recreation Therapist Hematology 10/15/17 Nava Painting MD [address] [place] [address] [email or web address] Hematology and Oncology 06/29/20 documented as of this encounter Additional Source Comments The information contained in this document represents components of the legal health record. It is not the complete legal health record.[facility]
--- OUTSIDE RECORDS SUMMARY | 2024-11-11 14:54 | XMS_ITS | Encounter Summary ---
Author Organization [facility] Address [address] [place] [address] Phone Care Team Providers Care Tread Builder Name Role Phone AnkushOlvin haskins Angus QUINTERO Primary Care Provider Nessa Agrawal PA-C Unavailable [phone] Nava Painting MD Unavailable [phone] Encounter Details Date Type Department Care Team (Latest Contact Info) Description 09/20/2017 Transcribe Orders [facility] [address] [place] [address] Jeffrey Ray MD [address] [address] [email or web address] Iron deficiency anemia, unspecified iron deficiency anemia type (Primary Dx) Social History Tobacco Use Types [...] documented as of this encounter Results * Miscellaneous lab test (09/20/2017 10:52 AM EDT) TESTS REQUESTED [employer] [facility] SPECIMEN/TUBE TYPE ACD (B) [facility] REQUEST RECEIVED Request received. A separate order for the requested test will be generated by the laboratory. [facility] Blood 09/20/2017 10:5 2 AM EDT 09/20/2017 11:58 AM EDT Jeffrey Ray MD LAB BLOOD ORDERABLES Final Result [facility] [address] [place] [address] documented in this encounter Visit Diagnoses Diagnosis Iron deficiency anemia, unspecified iron deficiency anemia type- Primary documented in this encounter Care Teams Tread Builder Relationship Specialty Start Date End Date Olvin Lechuga DO [address] [place] [address] PCP - General 12/11/16 Nessa Agrawal PA-C [address] [place] [address] [email or web address] Physician Curer Foam Rubber Hematology 10/15/17 Nava Painting MD [address] [place] [address] Hematology and Oncology 06/29/20 documented as of this encounter Additional Source Comments The information contained in this document represents components of the legal health record. It is not the complete legal health record.[facility]
--- OUTSIDE RECORDS SUMMARY | 2024-11-11 14:54 | XMS_ITS | Encounter Summary ---
Author Organization [facility] Address [address] [place] [address] Phone Care Team Providers Care Laborer Shipyard Name Role Phone Olvin Lechuga DO Primary Care Provider [phone] Nessa Agrawal PA-C Unavailable [phone] Nava Painting MD Unavailable [phone] Encounter Details Date Type Department Care Team (Late st Contact Info) Description 05/03/2017 Procedure Pass [facility] Endoscopy Admitting Dept Virtual Department [address] [place] [address] Social History Tobacco Use Types Packs/Day Years [...] documented as of this encounter Visit Diagnoses Not on filedocumented in this encounter Care Teams Laborer Shipyard Relationship Specialty Start Date End Date Olvin Lechuga DO [address] [place] [address] PCP - General 12/11/16 Nessa Agrawal PA-C [address] [place] [address] [email or web address] Physician Fisheries Biologist Hematology 10/15/17 Nava Painting MD [address] [place] [address] [email or web address] Hematology and Oncology 06/29/20 documented as of this encounter Additional Source Comments The information contained in this document represents components of the legal health record. It is not the complete legal health record.[facility]
--- OUTSIDE RECORDS SUMMARY | 2024-11-11 14:54 | XMS_ITS | Encounter Summary ---
Author Organization [facility] Address [address] [place] [address] Phone Care Team Providers Care Dyeing Machine Feeder Name Role Phone AnkushOlvin haskins Angus QUINTERO Primary Care Provider Nessa Agrawal PA-C Unavailable [phone] Nava Painting MD Unavailable [phone] Encounter Details Date Type Department Care Team (Latest Contact Info) Description 05/07/2017 Transcribe Orders [facility] Laboratory [address] [place] [address] Jeffrey Ray MD [address] [address] [email or web address] Anemia, unspecified type (Primary Dx) Social History Tobacco Use [...] documented as of this encounter Results * (ABNORMAL) Iron and iron binding capacity (05/07/2017 7:10 AM EDT) IRON 16(L) 30 - 160 ug/dL [facility] IRON BINDING CAPACITY 386 228 - 428 ug/dL [facility] TRANSFERRIN SATURAT. 4(L) 15 - 50 % [facility] Blood 05/07/2017 7:10 AM EDT 05/07/2017 7:13 AM EDT Jeffrey Ray MD LAB BLOOD ORDERABLES Final Result [facility] [address] [place] [address] * (ABNORMAL) CBC and differential (05/07/2017 7:10 AM EDT) Pathologist [facility] WBC 7.90 3.40 - 11.20 K/uL [facility] RBC 4.27 3.80 - 4.80 M/uL [facility] HGB 6.7(LL) 12.0 - 15.0 g/dL [facility] Comment: checked by repeat analysis This result has been called to Tom BARBOUR by Rosangela Chauhan on 05 07 2017 at 1253, and has been read back. HCT 27.1(L) 36.0 - 46.0 % [facility] PLT 490(H) 130 - 400 K/uL [facility] MCV 63.5(L) 79.0 - 98.0 fL [facility] MCH 15.7(L) 27.0 - 34.8 pg [facility] MCHC 24.7(L) 31.5 - 36.0 g/dL [facility] RDW 22.9(H) 10.8 - 14.6 % [facility] MPV 8.6(L) 9.4 - 12.4 fl [facility] NRBC 0.00 /100 WBCs [facility] ABSOLUTE NRBC 0.00 K/uL [facility] DIFF METHOD Auto [facility] NEUTS 56.4 45.30 - 77.70 % [facility] LYMPHS 29.1 12.30 - 39.70 % [facility] MONOS 6.6 4.10 - 12.80 % [facility] EOS 6.7 0 - 7.2 % [facility] BASOS 0.9 0 - 2.80 % [facility] Granulocytes, immature (%) 0.3 0.0 - 0.9 % [facility] ABSOLUTE NEUTS 4.46 1.40 - 7.70 K/uL [facility] ABSOLUTE LYMPHS 2.30 0.60 - 3.20 K/uL [facility] ABSOLUTE MONOS 0.52 0.11 - 0.59 K/uL [facility] ABSOLUTE EOS 0.53(H) 0.01 - 0.50 K/uL [facility] ABSOLUTE BASOS 0.07 0.00 - 0.08 K/uL [facility] Granulocytes, immature 0.02 0.00 - 0.05 K/uL [facility] POLYCHROME PRESENT(A ) None [facility] SCHISTOCYTES PRESENT(A ) None [facility] TARGET CELLS OCCASIONA L(A) None [facility] HYPOCHROMIA PRESENT(A ) None [facility] MICROCYTES PRESENT(A ) None [facility] OVALOCYTES PRESENT(A ) None [facility] Blood 05/07/2017 7:10 AM EDT 05/07/2017 7:13 AM EDT Jeffrey Ray MD LAB BLOOD ORDERABLES Final Result Performing Organization Address City/State/[facility] Co de Phone Number [address] [address] documented in this encounter Visit Diagnoses Diagnosis Anemia, unspecified type- Primary documented in this encounter Care Teams Dyeing Machine Feeder Relationship Specialty Start Date End Date Olvin Lechuga DO [address] [place] [address] PCP - General 12/11/16 Nessa Agrawal, PAHelenC [address] [place] [address] [email or web address] Physician Human Performance Technologist Hematology 10/15/17 Nava Painting MD [address] [place] [address] [email or web address] Hematology and Oncology 06/29/20 documented as of this encounter Additional Source Comments The information contained in this document represents components of the legal health record. It is not the complete legal health record.[facility]
--- OUTSIDE RECORDS SUMMARY | 2024-11-11 14:54 | XMS_ITS | Encounter Summary ---
Author Organization [facility] Address [address] [place] [address] [address] [place] [address] Phone Care Team Providers Care Supervisor Respiratory Name Role Phone Olvin Lechuga DO Primary Care Provider [phone] Nessa Agrawal PA-C Unavailable [phone] aNva Painting MD Unavailable [phone] Reason for Referral * MRI/CAT Scan - Closed Specialty Diagnoses / Procedures Referred By Conted t Referred To Contact Radiology Diagnoses Mass of left breast on mammogram Procedures MRI Breast (Bilateral) CHG MRI BREAST WITHOUT&WITH CONTRAST W/CAD BILATERAL Olvin Lechuga DO [address] [place] [address] Phone: tel: fax: Referral ID Status Reason Start Date Expiration Date Visits Re quested Visits Authorized [id number] Closed 08/03/2020 09/02/2020 1 1 Encounter Details Date Type Department Care Team (Late st Contact Info) Description 07/30/2020 Ancillary Orders For Login Purposes Only [address] [facility] Floor [address] [place] [address] Olvin Lechuga DO [address] [place] [address] Mass of left breast on mammogram Social History Tobacco Use Types Packs/Day Years [...] as of this encounter Results * BI MRI BREAST WITH AND WITHOUT CONTRAST (BILATERAL) (08/03/2020 5:22 PM EDT) Anatomical Region Laterality Modality Breast Left, Breast Right, Breast Bilateral Bila teral Magnetic Resonance 08/03/2020 Impressions 08/04/2020 2:33 PM EDT No MR evidence of malignancy in either breast. Please note, there is no prior mammogram available for review. If she has not had one within 1 year, mammography advised. BI-RADS Category 1: Negative Patient's information is entered into a reminder system with a target due date for the next exam. We support the [place] [employer] guidelines for early breast cancer detection in women at increased risk for breast cancer. These guidelines recommend breast MRI in combination with mammography for women at 20% or greater lifetime risk of breast cancer. Narrative 08/04/2020 2:33 PM EDT HISTORY: 54 year old patient seen for diagnostic MRI for evaluation of a possible left breast mass per the imaging order requisition. No outside imaging is available at this time. COMPARISON: Baseline MRI. TECHNIQUE: The patient was placed prone in a bilateral dedicated 16 channel open breast coil (Sentinelle, Invivo) and the following series were obtained with a 3.0 Amalia 750 MR scanner (Reach Pros): 3-plane localizer; axial non fat suppressed T1; axial fat suppressed 3D T2 (CUBE), one pre contrast and two post-contrast axial dynamic fat suppressed 3D T1 (VIBRANT) (initial post contrast centered at 75 seconds and delayed post contrast centered at 195 seconds after contrast injection initiated). Contrast was delivered as a power-injected (2 cc/sec) weight-adjusted (0.1 mm/kg) dose of gadolinium followed by a 15 cc saline flush. Multi-planar reconstructions in sagittal and coronal orientations were created of the immediate post-contrast T1-weighted images. Subtraction images were created by subtracting the pre-contrast from immediate post-contrast T1-weighted images, and were presented both in the axial plane and in 3D reconstructions (maximum intensity projections). Enhancement kinetics (initial and delayed) were evaluated for the dynamic phase series and displayed with color overlay maps. Initial enhancement thresholds of 50% increase for medium uptake and 100% increase for rapid uptake were applied, and delayed curve types were defined as washout for 10% or greater decrease in signal intensity, plateau for less than 10% change in signal intensity, and persistent enhancement for 10% or greater increase in signal intensity. BREAST MRI FINDINGS: There is scattered fibroglandular tissue. There is mild background parenchymal enhancement. There is no suspicious mass or area of abnormal enhancement in either breast. There is no abnormality of the chest wall, either axilla, or nipple areolar complex. There is a T2 hyperintense retrocardiac structure which communicates with the stomach, most in keeping with a hiatal hernia. There are T2 hyperintense structures in the liver measuring up to 4.8 cm, which are incompletely characterized but statistically likely cysts or hemangiomas. Procedure Note Andria Tabor MD, MSc - 08/04/2020 HISTORY: 54 year old patient seen for diagnostic MRI for evaluation of apossible left breast mass per the imaging order requisition. No outsideimaging is available at this time. COMPARISON: Baseline MRI. TECHNIQUE: The patient was placed prone in a bilateral dedicated 16 channel openbreast coil (Sentinelle, Invivo) and the following series were obtainedwith a 3.0 Amalia 750 MR scanner (Reach Pros): 3-plane localizer; axial non fatsuppressed T1; axial fat suppressed 3D T2 (CUBE), one pre contrast and twopost-contrast axial dynamic fat suppressed 3D T1 (VIBRANT) (initial postcontrast centered at 75 seconds and delayed post contrast centered at 195seconds after contrast injection initiated). Contrast was delivered as apower-injected (2 cc/sec) weight-adjusted (0.1 mm/kg) dose of gadoliniumfollowed by a 15 cc saline flush. Multi-planar reconstructions in sagittal and coronal orientations werecreated of the immediate post-contrast T1-weighted images. Subtractionimages were created by subtracting the pre-contrast from immediatepost-contrast T1-weighted images, and were presented both in the axialplane and in 3D reconstructions (maximum intensity projections).Enhancement kinetics (initial and delayed) were evaluated for the dynamicphase series and displayed with color overlay maps. Initial enhancementthresholds of 50% increase for medium uptake and 100% increase for rapiduptake were applied, and delayed curve types were defined as washout for10% or greater decrease in signal intensity, plateau for less than 10%change in signal intensity, and persistent enhancement for 10% or greaterincrease in signal intensity. BREAST MRI FINDINGS: There is scattered fibroglandular tissue. There is mild background parenchymal enhancement. There is no suspicious mass or area of abnormal enhancement in eitherbreast. There is no abnormality of the chest wall, either axilla, or nippleareolar complex. There is a T2 hyperintense retrocardiac structure which communicates withthe stomach, most in keeping with a hiatal hernia. There are T2 hyperintense structures in the liver measuring up to 4.8 cm,which are incompletely characterized but statistically likely cysts orhemangiomas. IMPRESSION: No MR evidence of malignancy in either breast. Please note, there is no prior mammogram available for review. If she has not had one within 1 year, mammography advised. BI-RADS Category 1: Negative Patient's information is entered into a reminder system with a target duedate for the next exam. We support the [place] [employer] guidelines for early breast cancerdetection in women at increased risk for breast cancer. These guidelinesrecommend breast MRI in combination with mammography for women at 20% orgreater lifetime risk of breast cancer. Olvin Lechuga DO IMG MR BREAST Final Result documented in this encounter Visit Diagnoses Diagnosis Mass of left breast on mammogram Mass of left breast on mammogram documented in this encounter Care Teams Supervisor Respiratory Relationship Specialty Start Date End Date Olvin Lechuga DO [address] [place] [address] PCP - General 12/11/16 Nessa Agrawal PA-C [address] [place] [address] [email or web address] Physician Office Machine Repair Shop Supervisor Hematology 10/15/17 Nava Painting MD [address] [place] [address] [email or web address] Hematology and Oncology 06/29/20 documented as of this encounter Additional Source Comments The information contained in this document represents components of the legal health record. It is not the complete legal health record.[facility]
--- OUTSIDE RECORDS SUMMARY | 2024-11-11 14:54 | XMS_ITS | Encounter Summary ---
Author Organization [facility] Address [address] [place] [address] Phone Care Team Providers Care Riding Coach Name Role Phone AnkushOlvin haskins Angus QUINTERO Primary Care Provider Nessa Agrawal PA-C Unavailable [phone] Nava Painting MD Unavailable [phone] Encounter Details Date Type Department Care Team (Latest Contact Info) Description 06/01/2017 Transcribe Orders [facility] [address] 2[address] [place] [address] Jeffrey Ray MD [address] [address] [email or web address] Anemia, unspecified type (Primary Dx) Social History [...] documented as of this encounter Results * Folate (06/01/2017 11:15 AM EDT) FOLIC ACID 13.9 4.2 - 19.9 ng/mL [facility] Blood 06/01/2017 11:1 5 AM EDT 06/01/2017 11:19 AM EDT Jeffrey Ray MD LAB BLOOD ORDERABLES Final Result Performing Organization Address City/[facility]/ZIP Co de Phone Number [address] [address] * Vitamin B12 (06/01/2017 11:15 AM EDT) Pathologist [facility] VITAMIN B12 883 243 - 894 pg/mL [facility] Blood 06/01/2017 11:1 5 AM EDT 06/01/2017 11:19 AM EDT Jeffrey Ray MD LAB BLOOD ORDERABLES Final Result Performing Organization Address [facility] Co de Phone Number [address] [address] * (ABNORMAL) Iron and iron binding capacity (06/01/2017 11:15 AM EDT) Pathologist [facility] IRON 27(L) 30 - 160 ug/dL [facility] IRON BINDING CAPACITY 421 228 - 428 ug/dL [facility] TRANSFERRIN SATURAT. 6(L) 15 - 50 % [facility] Blood 06/01/2017 11:1 5 AM EDT 06/01/2017 11:19 AM EDT Jeffrey Ray MD LAB BLOOD ORDERABLES Final Result Performing Organization Address City/[facility]/ZIP Co de Phone Number [address] [address] * (ABNORMAL) CBC (06/01/2017 11:15 AM EDT) Pathologist [facility] WBC 7.63 3.40 - 11.20 K/uL [facility] RBC 4.53 3.80 - 4.80 M/uL [facility] HGB 7.4(L) 12.0 - 15.0 g/dL [facility] HCT 28.7(L) 36.0 - 46.0 % [facility] PLT 423(H) 130 - 400 K/uL [facility] MCV 63.4(L) 79.0 - 98.0 fL [facility] MCH 16.3(L) 27.0 - 34.8 pg [facility] MCHC 25.8(L) 31.5 - 36.0 g/dL [facility] RDW 23.4(H) 10.8 - 14.6 % [facility] MPV 8.9(L) 9.4 - 12.4 fl [facility] NRBC 0.00 /100 WBCs [facility] ABSOLUTE NRBC 0.00 K/uL [facility] Blood 06/01/2017 11:1 5 AM EDT 06/01/2017 11:19 AM EDT us Jeffrey Ray MD LAB BLOOD ORDERABLES Final Result [facility] [address] [place] [address] * Gliadin deamidated antibody, IgG/IgA (06/01/2017 11:15 AM EDT) Gliadin Ab, IGA <10.0 <20.0 (Negative) U [facility] DPT OF LAB MED AND PAT+ GLIADIN AB IGG <10.0 <20.0 (Negative) U [facility] OF LAB MED AND PAT+ Blood 06/01/2017 11:1 5 AM EDT 06/01/2017 11:20 AM EDT us Jeffrey Ray MD LAB BLOOD ORDERABLES Final Result [facility] OF LAB MED AND PAT+ [address] [place] [address] * Tissue transglutaminase IgA (06/01/2017 11:15 AM EDT) TTG IGA ANTIBODY <1.2 <4.0 (Negative) U/mL [facility] OF LAB MED AND PAT+ Blood 06/01/2017 11:1 5 AM EDT 06/01/2017 11:20 AM EDT Jeffrey Ray MD LAB BLOOD ORDERABLES Final Result [facility] OF LAB MED AND PAT+ [address] [place] [address] * Immunoglobulin A (06/01/2017 11:15 AM EDT) IgA 276 70 - 400 mg/dL [facility] Blood 06/01/2017 11:1 5 AM EDT 06/01/2017 11:19 AM EDT Jeffrey Ray MD LAB BLOOD ORDERABLES Final Result Performing Organization Address City/[facility] Co de Phone Number [facility] [address] [place] [address] documented in this encounter Visit Diagnoses Diagnosis Anemia, unspecified type- Primary documented in this encounter Care Teams Riding Coach Relationship Specialty Start Date End Date Olvin Lechuga DO [address] [place] [address] PCP - General 12/11/16 Nessa Agrawal PA-C [address] [place] [address] [email or web address] Physician Tooling Engineer Hematology 10/15/17 Nava Painting MD [address] [place] [address] Hematology and Oncology 06/29/20 documented as of this encounter Additional Source Comments The information contained in this document represents components of the legal health record. It is not the complete legal health record.[facility]
--- OUTSIDE RECORDS SUMMARY | 2024-11-11 14:54 | XMS_ITS | Encounter Summary ---
Author Organization [facility] Address [address] [place] [address] Phone Care Team Providers Care Blending Machine Feeder Name Role Phone Olvin Lechuga DO Primary Care Provider [phone] Nessa Agrawal PA-C Unavailable [phone] Nava Painting MD Unavailable [phone] Encounter Details Date Type Department Care Team (Late st Contact Info) Description 07/30/2020 Procedure Pass [facility], Yang 2 [address] [facility], 2nd [place] [address] Social History Tobacco Use Types Packs/Day Years [...] on filedocumented in this encounter Care Teams Blending Machine Feeder Relationship Specialty Start Date End Date Olvin Lechuga DO [address] [place] [address] PCP - General 12/11/16 Nessa Agrawal PA-C [address] [place] [address] [email or web address] Physician Workshop Manager Hematology 10/15/17 Nava Painting MD [address] [place] [address] [email or web address] Hematology and Oncology 06/29/20 documented as of this encounter Additional Source Comments The information contained in this document represents components of the legal health record. It is not the complete legal health record.[facility]
--- OUTSIDE RECORDS SUMMARY | 2024-11-11 14:54 | XMS_ITS | Encounter Summary ---
Author Organization [facility] Address [address] [place] [address] Phone Care Team Providers Care Industrial Mechanic Name Role Phone AnkushOlvin haskins Angus QUINTERO Primary Care Provider [phone] Nessa Agrawal PA-C Unavailable [phone] Nava Painting MD Unavailable [phone] Encounter Details Date Type Department Care Team (Latest Contact Info) Description 04/23/2017 Transcribe Orders [facility] [address] [place] [address] Jeffrey Ray MD [address] [address] [email or web address] Normocytic hypochromic anemia (Primary Dx) Social History Tobacco Use Types [...] as of this encounter Results * (ABNORMAL) CBC (04/23/2017 7:18 AM EST) WBC 7.78 3.40 - 11.20 K/uL [facility] RBC 3.82 3.80 - 4.80 M/uL [facility] HGB 6.0(LL) 12.0 - 15.0 g/dL [facility] Comment:This result has been called to CHRISTELLE Cai by Shanthi Luevano on 04 23 2017 at 1000, and has been read back. HCT 23.4(L) 36.0 - 46.0 % [facility] PLT 457(H) 130 - 400 K/uL [facility] MCV 61.3(L) 79.0 - 98.0 fL [facility] MCH 15.7(L) 27.0 - 34.8 pg [facility] MCHC 25.6(L) 31.5 - 36.0 g/dL [facility] RDW 21.3(H) 10.8 - 14.6 % [facility] MPV 9.3(L) 9.4 - 12.4 fl [facility] NRBC 0.00 /100 WBCs [facility] ABSOLUTE NRBC 0.00 K/uL [facility] Blood 04/23/2017 7:18 AM EST 04/23/2017 7:21 AM EST Jeffrey Ray MD LAB BLOOD ORDERABLES Final Result [address] [address] documented in this encounter Visit Diagnoses Diagnosis Normocytic hypochromic anemia- Primary Unspecified iron deficiency anemia documented in this encounter Care Teams Industrial Mechanic Relationship Specialty Start Date End Date Olvin Lechuga DO [address] [place] [address] PCP - General 12/11/16 Nessa Agrawal PA-C [address] [place] [address] Physician Chute Builder Hematology 10/15/17 Nava Painting MD [address] [place] [address] [email or web address] Hematology and Oncology 06/29/20 documented as of this encounter Additional Source Comments The information contained in this document represents components of the legal health record. It is not the complete legal health record.[facility]
--- OUTSIDE RECORDS SUMMARY | 2024-11-11 14:55 | XMS_ITS | Clinical Summary ---
Author Organization [facility] Address [address] [place] [address] Phone Care Team Providers Care Spa Concierge Name Role Phone AnkushMelisa Angus QUINTERO Primary Care Provider Nessa Agrawal PA-C Unavailable [phone] Nava Painting MD Unavailable [phone] Allergies Active Allergy Reactions Criticality Noted Date Comments Penicillins 04/12/2017 Medications * This document contains information received from the source organization and may not represent a complete record from that organization. ARIPiprazole (ABILIFY) 30 MG tablet Take 1 tablet (30 mg total) by mouth daily. 15 tablet 1 12/21/2020 Active ferrous sulfate 325 mg (65 mg akutan iron) tablet Take 1 tablet (325 mg total) by mouth 3 (three) times a day. 90 tablet 12/21/2020 Active Active Problems Patient Care Coordination No te Formatting of this note migh t be different from the original. Height 166.4cm no shoes taken by OC 02/03/19 Problem Noted Date Diagnosed Date Bipolar affective disorder, manic, severe 2020 Iron deficiency anemia 06/04/2017 Immunizations Immunization Administration Dates Next Due COVID-19 (Pre-12/18) Pfizer Vaccine, mRNA, PF 05/22/2020 Influenza Quadrivalent Prese rvative Free IM 12/21/2020(Deferred: Patient Refused),01/11/2020 Influenza Quadrivalent w/ Preservative IM 04/18/2017 Family History Medical History Relation Comments Cancer Brother Relation Status Comments Brother Alive Social History Tobacco Use Types Packs/Day Years Used Date Smoking Tobacco: Never Smokeless Tobacco: Never Tobacco Cessation:Counseling Given: Not Answered Alcohol Use Standard Drinks/Week Comments Yes 0 (1 standard drink = 0.6 oz pur e alcohol) 1-2 glasses of wine per week Education Answer Date Recorded Are you interested in more education? Not on crow e 06/23/2022 Are you concerned about learning? Not on file 06/23/2022 No 06/23/2022 No 06/23/2022 Digital Access Answer Date Recorded No 07/24/2022 No 07/24/2022 No 07/24/2022 Reliable internet access at home? Not on file 07/24/2022 Device with a working camera? Not on file Comments Unknown Sex and Gender Information Value Date Recorded Sex Assigned at Female 09/16/2019 9:38 AM EDT Legal Sex Female 9:41 PM EDT Gender Identity Female 09/16/2019 9:38 AM EDT Sexual Orientation Straight 09/16/2019 9: 39 AM EDT Last Filed Vital Signs Vital Sign Reading Time Taken Comments Blood Pressure 119/74 12/21/2020 8:32 AM EDT Pulse 82 12/21/2020 8:32 AM EDT Temperature 36.9 C (98.4 F) 12/21/2020 8:32 AM EDT Respiratory Rate 16 12/20/2020 5:00 PM EDT Oxygen Saturation 97% 12/21/2020 8:32 AM EDT Inhaled Oxygen Concentration - - Weight 91.9 kg (202 lb 11.2 oz) 021 11:00 AM EDT Height 167.6 cm (5' 6 ) 12/03/2020 11:0 0 AM EDT Body Mass Index 32.72 12/03/2020 11:00 AM EDT Plan of Treatment Health Maintenance Due Date Last Done Comments Adult Td,Tdap Booster 1965 DEPRESSION SCREENING 1976 HEPATITIS C SCREENING 1982 HIV ONE-TIME SCREENING (18-65 YEARS) 1982 PAP SMEAR 1985 COLOGUARD 2009 FIT TEST 2009 FOBT 2009 SIGMOIDOSCOPY 2009 VIRTUAL COLONOSCOPY 2009 PNEUMOCOCCAL VACCINES (50+ years) (1 of 1 - PCV) 2014 ZOSTER VACCINES (1 of 2) 2014 MAMMOGRAM 03/16/2024 03/16/2022, 06/0 09/2020, 07/15/2020, Additional history exists INFLUENZA VACCINE (#1) 2024 , 02/23/2021, 01/11/2020, Additional history exists COVID-19 VACCINE ( season) 2024 12/16/2021, 08/11/2021, 02/23/2021, Additional history exists COLONOSCOPY 05/04/2027 05/03/2017 COLORECTAL CANCER SCREENING 05/04/2027 LIPID PANEL 03/31/2028 03/31/2023, 02/26, 04/11/2017 SMOKING STATUS SCREENING (Once After 26 Yrs) Completed 12/05/2020 HEPATITIS A VACCINES Aged Out No long er eligible based on patient's age to complete this topic HIB VACCINES Aged Out No longer eligi ble based on patient's age to complete this topic MENINGOCOCCAL VACCINES (ACWY) Aged Out No longer eligible based on patient's age to complete this topic MENINGOCOCCAL VACCINES (B) Aged Out N o longer eligible based on patient's age to complete this topic Medical Devices Not on file Procedures Procedure Name Priority Date/Time Associated Diagnosis Comments LIPID PANEL Routine 03/31/2023 8:48 AM EST Routine general medical examination at a health care facility Pure hypercholesterolemi a Iron deficiency anemia, unspecified iron deficiency anemia type BI MAMMOGRAM SCREENING WITH TOMOSYNTHESIS WITH CAD (BILATERAL) Routine 03/16/2022 4:32 PM EST Screening breast examination ENDOSCOPY, COLON 05/03/2017 1:41 PM EST from Last 3 Months or Most Recently Relevant to Health Maintenance Results * (ABNORMAL) Lipid panel (03/31/2023 8:48 AM EST) HDL 61 mg/dL [facility] Comment: Interpretation <40 mg/dL: Low HDL cholesterol (major risk factor for CHD) Greater than or equal to 60 mg/dL: High HDL cholesterol ( negative risk factor for CHD) HDL - cholesterol is affected by a number of factors, e.g. smoking, excerise, hormones, sex and age. CHOLESTEROL 160 0 - 240 mg/dL [facility] TRIGLYCERIDES 81 30 - 160 mg/dL [facility] LDL 83 50 - 129 mg/dL [facility] Comment: LDL levels in terms of risk for coronary heart disease: <100 mg/dL: Optimal 100-129 mg/dL: Near or above optimal 130-159 mg/dL: Borderline high 160-189 mg/dL: High >190 mg/dL: Very High CARDIAC RISK RATIO 2.6(L) 3.3 - 4.4 C [facility] Blood 03/31/2023 8:48 AM EST 03/31/2023 8:52 AM EST us Melisa Velasquez DO LAB BLOOD ORDERABLES Final R esult Performing Organization Address City/State/[facility] Co de Phone Number [address] [address] * BI MAMMOGRAM SCREENING WITH TOMOSYNTHESIS WITH [...] be notified of the results and recommendations. us Melisa Velasquez DO IMG MG EXAMS Final Result * ENDOSCOPY, COLON (05/03/2017 1:41 PM EST) Narrative Transcriptions Niki Ray MD - 05/03/2017 1:41 PM EST Patient Name: Ирина Luna Attending MD:: NIKI RAY MD Procedure Date: 05/03/2017 1:41 PM Date of : 1965 Age: 51 Admit Type: Outpatient Gender: Female Room: [place] [address] Referring MD: MELISA VELASQUEZ Exam Type: Colonoscopy Indications: This is the patient's first colonoscopy, Irondeficiency anemia Medications: Propofol per Anesthesia Procedure: Informed consent was obtained from the patient after discussion of the indications, limitations,alternatives, benefits, and risks of the procedure. Risksspecifically discussed include but are not limited to medication reactions, missed lesions, bleeding, perforation, orthe need for emergent surgery. Throughout the procedure, the patient's blood pressure, pulse, end-tidal CO2, and oxygen saturations were monitored continuously. The Olympus adult variable colonoscope [id number] #2 was introduced through the anus and advanced to theterminal ileum, with identification of the appendiceal orificeand IC valve. The terminal ileum, ileocecal valve,appendiceal orifice, and rectum were photographed. The colonoscopywas performed without difficulty. The patient tolerated the procedure well. The quality of the bowel preparationwas excellent. The bowel preparation used was GoLYTELY. Complications: No immediate complications. Estimated blood loss:None. Findings: The perianal and digital rectal examinations werenormal. Pertinent negatives include no palpable rectallesions. The retroflexed view of the distal rectum and analverge was normal and showed no anal or rectalabnormalities. A localized area of granular mucosa, slightlyprotuberant, was found in the cecum directly across from IC valve.This is benign appearing. Biopsies were taken with a cold forceps for histology. The exam was otherwise without abnormality. The terminal ileum appeared normal. Retroflexion in the right colon was performed. Impression: - The distal rectum and anal verge are normal on retroflexion view. - Granularity in the cecum. Biopsied. - The examination was otherwise normal. - The examined portion of the ileum was normal. Recommendation: - Await pathology results. Follow H/H with Iron supplementation, consider IV replacement if not otherwise improving. Of note, stool)B (-) X3 NIKI RAY MD 05/03/2017 3:19:01 PM This report has been signed electronically. Number of Addenda: 0 Note Initiated On: 05/03/2017 1:41 PM Procedure Code(s): --- Professional --- 90237, Colonoscopy, flexible; with biopsy, single or multiple --- Technical --- 34940, Colonoscopy, flexible; with biopsy, single or multiple Diagnosis Code(s): --- Professional --- K63.89, Other specified diseases of intestine D50.9, Iron deficiency anemia, unspecified --- Technical --- K63.89, Other specified diseases of intestine D50.9, Iron deficiency anemia, unspecified CPT copyright 2016 [employer]. All rights reserved. The codes documented in this report are preliminary and upon electrician wiring reviewmay be revised to meet current compliance requirements. [address] [place] [address] Melisa Velasquez DO GI PROCEDURE ORDERABLES Devi l Result from Last 3 Months or Most Recently Relevant to Health Maintenance Insurance Advance Directives For more information, please contact: [phone] (9AM - 5PM [facility], Sunday-Sunday) Documents on File Type Date Recorded Patient Clinical Esthetician Expl anation Legal Guardianship 12/22/2020 5:34 PM * Full Code (Latest Code Status on File) Date Activated Date Inactivated Comments 10/01/2020 9:53 PM Question Answer Comments Code Status Confirmed With: Patient Care Teams Spa Concierge Relationship Specialty Start Date End Date Melisa Velasquez DO [address] [place] [address] PCP - General 12/11/16 Nessa Agrawal PA-C [address] [place] [address] Physician Tombstone Polisher Hematology 10/15/17 Nava Painting MD [address] [place] [address] Hematology and Oncology 06/29/20 Additional Source Comments The information contained in this document represents components of the legal health record. It is not the complete legal health record.[facility]
--- OUTSIDE RECORDS SUMMARY | 2024-11-11 14:55 | XMS_ITS | Encounter Summary ---
Author Organization [facility] Address [address] [place] [address] Phone Care Team Providers Care Global Ceo Name Role Phone Olvin Lechuga DO Primary Care Provider Nessa Agrawal PA-C Unavailable [phone] Nava Painting MD Unavailable [phone] Encounter Details Date Type Department Care Team (Late st Contact Info) Description 04/11/2017 Ancillary Orders [facility], X-Ray - [facility] [address] [place] [address] Olvin Lechuga, DO [address] [place] [address] Bronchitis Social History Tobacco Use Types Packs/Day Years Used Date Smoking Tobacco: Never Assessed Comments Unknown Sex and Gender Information Value Date Recorded Sex Assigned at Female 09/16/2019 9:38 AM EDT Legal Sex Female 9:41 PM EDT Gender Identity Female 09/16/2019 9:38 AM EDT Sexual Orientation Straight 09/16/2019 9: 39 AM EDT documented as of this encounter Plan of Treatment Not on file documented as of this encounter Results * XR CHEST PA AND LATERAL 2 VIEWS (04/11/2017 8:19 AM EST) Anatomical Region Laterality Modality Chest Radiographic Isabel ging 04/11/2017 8:37 AM EST Impressions 04/11/2017 8:39 AM EST No acute chest disease. POS - [id number] Narrative 04/11/2017 8:39 AM EST HISTORY: As above. COMPARISON: None. CHEST RADIOGRAPH FINDINGS: 2 views obtained. Heart is normal in size. Aortic tortuosity. Lungs are clear. No acute soft tissue or bony findings. Procedure Note Ailyn Stephenson MD - 04/11/2017 HISTORY: As above. COMPARISON: None. CHEST RADIOGRAPH FINDINGS: 2 views obtained. Heart is normal in size. Aortic tortuosity. Lungs areclear. No acute soft tissue or bony findings. IMPRESSION: No acute chest disease. POS - [id number] Olvin Lechuga DO IMG XR CHEST Final Result documented in this encounter Visit Diagnoses Diagnosis Bronchitis Bronchitis, not specified as acute or chronic Bronchitis Bronchitis, not specified as acute or chronic documented in this encounter Care Teams Global Ceo Relationship Specialty Start Date End Date Olvin Lechuga DO [address] [place] [address] PCP - General 12/11/16 Nessa Agrawal PA-C [address] [place] [phone] [email or web address] Physician Sales Leader Hematology 10/15/17 Nava Painting MD [address] [place] [address] Hematology and Oncology 06/29/20 documented as of this encounter Additional Source Comments The information contained in this document represents components of the legal health record. It is not the complete legal health record.[facility]
--- OUTSIDE RECORDS SUMMARY | 2024-11-11 14:55 | XMS_ITS | Encounter Summary ---
Author Organization [facility] Address [address] [place] [address] Phone Care Team Providers Care Cook Fish And Chips Name Role Phone AnkushOlvin haskins Angus QUINTERO Primary Care Provider [phone] Nessa Agrawal PA-C Unavailable [phone] Nava Painting MD Unavailable [phone] Encounter Details Date Type Department Care Team (Latest Contact Info) Description 05/09/2019 Transcribe Orders [facility] at [address] [address] Katharina Garcia [place] [address] [place] [address] [email or web address] Iron deficiency anemia (Primary Dx) Social History Tobacco Use [...] documented as of this encounter Results * Comprehensive metabolic panel (06/30/2019 11:24 AM EDT) SODIUM 142 133 - 146 mmol/L [facility] POTASSIUM 4.3 3.3 - 5.1 mmol/L [facility] CHLORIDE 104 96 - 108 mmol/L [facility] CO2 26 21 - 35 mmol/L [facility] BUN 17 6 - 19 mg/dL [facility] CREATININE 0.80 0.5 - 1.5 mg/dL [facility] GLUCOSE 80 70 - 99 mg/dL [facility] ALBUMIN 4.4 3.9 - 4.8 g/dL [facility] TOTAL PROTEIN 7.6 6.5 - 8.0 g/dL [facility] CALCIUM 9.7 8.4 - 10.3 mg/dL [facility] ALKALINE PHOSPHATASE 75 39 - 117 U/L [facility] TOTAL BILIRUBIN <0.2 0.0 - 1.2 mg/dL [facility] AST 18 0 - 37 U/L [facility] ALT 17 0 - 40 U/L [facility] GLOBULIN 3.2 1 - 4.8 g/dL [facility] EGFR 84 >59 mL/min/1.7 3m2 [facility] Comment:If patient is black, multiply result by 1.159. Estimated glomerular filtration rate calculated using the CKD-EPI equation. ANION GAP 16 10 - 20 mmol/L [facility] Blood 06/30/2019 11:2 4 AM EDT 06/30/2019 11:38 AM EDT us Margie Jones HOME HEALTH ATTENDANT LAB BLOOD ORDERABLES Final Re sult [address] [address] documented in this encounter Visit Diagnoses Diagnosis Iron deficiency anemia- Primary Unspecified iron deficiency anemia documented in this encounter Care Teams Cook Fish And Chips Relationship Specialty Start Date End Date Olvin Lechuga DO [address] [place] [address] PCP - General 12/11/16 Nessa Agrawal, PEACEC [address] [place] [address] [email or web address] Physician Fiscal Officer Hematology 10/15/17 Nava Painting MD [address] [place] [address] [email or web address] Hematology and Oncology 06/29/20 documented as of this encounter Additional Source Comments The information contained in this document represents components of the legal health record. It is not the complete legal health record.[facility]
--- OUTSIDE RECORDS SUMMARY | 2024-11-11 14:55 | XMS_ITS | Encounter Summary ---
Author Organization [facility] Address [address] [place] [address] Phone Care Team Providers Care Vice Chairman Name Role Phone Olvin Lechuga DO Primary Care Provider [phone] Nessa Agrawal PA-C Unavailable [phone] Nava Painting MD Unavailable [phone] Encounter Details Date Type Department Care Team (Latest Contact Info) Description 04/11/2017 Transcribe Orders [facility] Laboratory [address] [place] [address] Olvin Lechuga, [address] [place] [id number] Catarrhal bronchitis (Primary Dx); Hyperlipidemia, unspecified hyperlipidemia type; Hypercholesterolemia Social History Tobacco Use Types Packs/Day Years [...] documented as of this encounter Results * ECG 12-LEAD (04/11/2017 8:37 AM EST) Ventricular Rate EKG/MIN 90 BPM [facility] Atrial Rate 90 BPM [facility] IA Interval 132 ms [facility] QRS Duration 82 ms [facility] QT Interval 358 ms [facility] QTC Interval 437 ms [facility] P [place] 25 degrees [facility] R Wave [place] -22 degrees [facility] T Wave [place] 54 degrees [facility] 04/11/2017 8:37 AM EST 04/11/2017 1:36 PM EST Narrative [facility] - 04/11/2017 1:36 PM EST Sinus rhythm with Premature supraventricular complexes Otherwise normal ECG No previous ECGs available Confirmed by WILMAN ORR MD ([id number]) on 04/11/2017 1:36:40 PM us Olvin Lechuga DO ECG ORDERABLES Final Result [facility] * TSH (04/11/2017 7:49 AM EST) TSH 2.17 0.27 - 4.20 uIU/mL [facility] Blood 04/11/2017 7:49 AM EST 04/11/2017 7:50 AM EST us Olvin Lechuga DO LAB BLOOD ORDERABLES Final R esult [address] [address] * Comprehensive metabolic panel (04/11/2017 7:49 AM EST) SODIUM 141 133 - 146 mmol/L [facility] POTASSIUM 4.3 3.3 - 5.1 mmol/L [facility] CHLORIDE 104 96 - 108 mmol/L [facility] CO2 25 21 - 35 mmol/L [facility] BUN 12 6 - 19 mg/dL [facility] CREATININE 0.70 0.5 - 1.5 mg/dL [facility] GLUCOSE 99 70 - 99 mg/dL [facility] ALBUMIN 4.0 3.9 - 4.8 g/dL [facility] TOTAL PROTEIN 6.8 6.5 - 8.0 g/dL [facility] CALCIUM 8.7 8.4 - 10.3 mg/dL [facility] ALKALINE PHOSPHATASE 66 39 - 117 U/L [facility] TOTAL BILIRUBIN 0.3 0 - 1.2 mg/dL [facility] AST 14 0 - 37 U/L [facility] ALT 12 0 - 40 U/L [facility] GLOBULIN 2.8 1 - 4.8 g/dL [facility] EGFR >60 >60 mL/min/1.7 3m2 [facility] Comment:Abnormal if <60. If patient is -Georgian, multiply the result by 1.21. ANION GAP 16 10 - 20 mmol/L [facility] Blood 04/11/2017 7:49 AM EST 04/11/2017 7:50 AM EST us Olvin Lechuga DO LAB BLOOD ORDERABLES Final R esult Performing Organization Address City/[facility]/ZIP Co de Phone Number [address] [address] * (ABNORMAL) Lipid panel (04/11/2017 7:49 AM EST) HDL 65 mg/dL [facility] Comment: Interpretation: Risk Level Females Decreased >55mg/dL Average 50-55 mg/dL Increased <50 mg/dL CHOLESTEROL 173 0 - 240 mg/dL [facility] TRIGLYCERIDES 64 30 - 160 mg/dL [facility] LDL 95 50 - 129 mg/dL [facility] Comment: LDL levels in terms of risk for coronary heart disease: <100 mg/dL: Optimal 100-129 mg/dL: Near or above optimal 130-159 mg/dL: Borderline high 160-189 mg/dL: High >190 mg/dL: Very High CARDIAC RISK RATIO 2.7(L) 3.3 - 4.4 C [facility] Blood 04/11/2017 7:49 AM EST 04/11/2017 7:50 AM EST us Olvin Lechuga DO LAB BLOOD ORDERABLES Final R esult Performing Organization Address [facility] Co de Phone Number [address] [address] * (ABNORMAL) CBC and differential (04/11/2017 7:49 AM EST) WBC 7.17 3.40 - 11.20 K/uL [facility] RBC 3.70(L) 3.80 - 4.80 M/uL [facility] HGB 5.8(LL) 12.0 - 15.0 g/dL [facility] Comment:This result has been called to RAMA Downey by Rosangela Chauhan on 04 11 2017 at 0921, and has been read back. HCT 22.5(L) 36.0 - 46.0 % [facility] PLT 441(H) 130 - 400 K/uL [facility] MCV 60.8(L) 79.0 - 98.0 fL [facility] MCH 15.7(L) 27.0 - 34.8 pg [facility] MCHC 25.8(L) 31.5 - 36.0 g/dL [facility] RDW 18.9(H) 10.8 - 14.6 % [facility] MPV 9.1(L) 9.4 - 12.4 fl [facility] NRBC 0.00 /100 WBCs [facility] ABSOLUTE NRBC 0.00 K/uL [facility] DIFF METHOD Auto [facility] NEUTS 63.0 45.30 - 77.70 % [facility] LYMPHS 23.6 12.30 - 39.70 % [facility] MONOS 6.7 4.10 - 12.80 % [facility] EOS 5.6 0 - 7.2 % [facility] BASOS 0.8 0 - 2.80 % [facility] Granulocytes, immature (%) 0.3 0.0 - 0.9 % [facility] ABSOLUTE NEUTS 4.52 1.40 - 7.70 K/uL [facility] ABSOLUTE LYMPHS 1.69 0.60 - 3.20 K/uL [facility] ABSOLUTE MONOS 0.48 0.11 - 0.59 K/uL [facility] ABSOLUTE EOS 0.40 0.01 - 0.50 K/uL [facility] ABSOLUTE BASOS 0.06 0.00 - 0.08 K/uL [facility] Granulocytes, immature 0.02 0.00 - 0.05 K/uL [facility] HYPOCHROMIA MARKED(A) None [facility] OVALOCYTES PRESENT(A) None [facility] Blood 04/11/2017 7:49 AM EST 04/11/2017 7:50 AM EST Olvin Lechuga DO LAB BLOOD ORDERABLES Final R esult [facility] [address] [place] [address] documented in this encounter Visit Diagnoses Diagnosis Catarrhal bronchitis- Primary Bronchitis, not specified as acute or chronic Hyperlipidemia, unspecified hyperlipidemia type Hypercholesterolemia Pure hypercholesterolemia Hypercholesterolemia Pure hypercholesterolemia documented in this encounter Care Teams Vice Chairman Relationship Specialty Start Date End Date Olvin Lechuga, [address] [place] [address] PCP - General 12/11/16 Nessa Agrawal PA-C [address] [place] [address] Physician Docketing Specialist Hematology 10/15/17 Nava Painting MD [address] [place] [phone] Hematology and Oncology 06/29/20 documented as of this encounter Additional Source Comments The information contained in this document represents components of the legal health record. It is not the complete legal health record.[facility]
--- OUTSIDE RECORDS SUMMARY | 2024-11-11 14:55 | XMS_ITS | Encounter Summary ---
Author Organization [facility] Address [address] [place] [address] Phone Care Team Providers Care Thread Spinner Name Role Phone Olvin Lechuga DO Primary Care Provider [phone] Nessa Agrawal PA-C Unavailable [phone] Nava Painting MD Unavailable [phone] Encounter Details Date Type Department Care Team (Late st Contact Info) Description 12/20/2017 Procedure Pass [facility] Endoscopy Admitting Dept Virtual Department [address] [place] [address] Social History Tobacco Use Types Packs/Day Years [...] on filedocumented in this encounter Care Teams Thread Spinner Relationship Specialty Start Date End Date Olvin Lechuga DO [address] [place] [address] PCP - General 12/11/16 Nessa Agrawal PA-C [address] [place] [address] [email or web address] Physician Cardroom Drawing Runner Hematology 10/15/17 Nava Painting MD [address] [place] [phone] [email or web address] Hematology and Oncology 06/29/20 documented as of this encounter Additional Source Comments The information contained in this document represents components of the legal health record. It is not the complete legal health record.[facility]
--- OUTSIDE RECORDS SUMMARY | 2024-11-11 14:55 | XMS_ITS | Encounter Summary ---
Author Organization [facility] Address [address] [place] [address] Phone Care Team Providers Care Produce Clerk Name Role Phone Olvin Lechuga DO Primary Care Provider [phone] Nessa Agrawal PA-C Unavailable [phone] Nava Painting MD Unavailable [phone] Encounter Details Date Type Department Care Team (Late st Contact Info) Description 03/15/2017 Procedure Pass [facility] Endoscopy Admitting Dept Virtual Department [address] [place] [address] Social History Tobacco Use Types Packs/Day Years [...] on filedocumented in this encounter Care Teams Produce Clerk Relationship Specialty Start Date End Date Olvin Lechuga DO [address] [place] [address] PCP - General 12/11/16 Nessa Agrawal PA-C [address] [place] [phone] [email or web address] Physician Senior [employer] Net Developer Hematology 10/15/17 Nava Painting MD [address] [place] [address] [email or web address] Hematology and Oncology 06/29/20 documented as of this encounter Additional Source Comments The information contained in this document represents components of the legal health record. It is not the complete legal health record.[facility]
--- OUTSIDE RECORDS SUMMARY | 2024-11-11 14:55 | XMS_ITS | Encounter Summary ---
Author Organization [facility] Address [address] [place] [address] [address] [place] [address] Phone Care Team Providers Care Group Work Program Director Name Role Phone Olvin Lechuga DO Primary Care Provider [phone] Nessa Agrawal PA-C Unavailable [phone] Nava Painting MD Unavailable [phone] Encounter Details Date Type Department Care Team (Late st Contact Info) Description 02/14/2022 Procedure Pass [facility] [address] [place] [address] Social History Tobacco Use Types Packs/Day Years [...] on filedocumented in this encounter Care Teams Group Work Program Director Relationship Specialty Start Date End Date Olvin Lechuga DO [address] [place] [address] PCP - General 12/11/16 Nessa Agrawal PA-C [address] [place] [address] [email or web address] Physician Operations Officer Trust Department Hematology 10/15/17 Nava Painting MD [address] [place] [address] [email or web address] Hematology and Oncology 06/29/20 documented as of this encounter Additional Source Comments The information contained in this document represents components of the legal health record. It is not the complete legal health record.[facility]
== END 2024-11-11 11:29 | disposition home or self-care (01) ==
PROVIDERS: PCP Internal Medicine; Visit Provider Physician Assistant
DX: L98.9 Disorder of the skin and subcutaneous tissue, unspecified (principal)

== ENCOUNTER 2025-01-20 10:47 | Outpatient (AMB) | payer BC, SELFPAY ==
--- NOTE | 2025-01-20 10:58 | A.OFFPC_ITS ---
Vital Signs 01/20/25 11:00 01/20/25 13:54 Height 5 ft 4.25 in Weight 242 lb 0.2 oz BMI 41.2 BP 169/74 H 137/65 Blood Pressure Location Lt brachial Pulse 75 Pulse Source Pulse Oximeter Temp 97 F Pulse Oximetry (%) 98 Intake Visit Reasons: Wart/ wants derm referral/ Weightloss med Intake Note: Had wart and derm referral just here for weightloss. Allergies Penicillins Allergy (Intermediate, Verified 01/20/25 13:55) Hives Medication List - Last Reconciled 01/20/25 by Keesha Leyva PA-C aripiprazole 30 mg PO DAILY ferrous sulfate 325 mg PO DAILY tirzepatide (weight loss) (Zepbound) 2.5 mg (0.5 mL) subcut QWEEK HPI HPI Comments History of Present Illness Details History of Present Illness The patient is a 59 year old individual presenting for management of weight. The patient reports struggling with weight loss despite previous attempts and is now interested in trying a weight loss medication. The patient's BMI is 41. Review of blood work from March revealed high cholesterol with an LDL of 122 mg/dL. Other results from that time, including CBC, sodium, potassium, kidney fu nction, magnesium, and liver enzymes, were normal. A hemoglobin A1c was 4.7%, showing no evidence of diabetes. Vitamin B12 levels were high, which the patient attributes to supplementation. The patient reports having sleep apnea, which the patient believes is due to weight, but is not currently using a CPAP device. The patient monitors blood pressure at home and notes it has been low, although it can elevate due to work- related stress. The patient also reports recent difficulty hearing the 's low-toned voice, suspecting cerumen impaction, noting a family history of this issue in the father. Social History - Weight Management: The patient reports difficulty losing weight and is seeking pharmacologic intervention. - Employment: The patient notes work is very stressful, which is perceived to affect blood pressure. - Nutrition: The patient reports taking a fiber supplement, which helps with satiety. [facility] Medical History (Updated 01/20/25 @ 14:00 by Keesha Leyva PA-C) Healthcare maintenance Hearing difficulty Sleep apnea Morbid obesity with BMI of 40.0-44.9, adult Morbid obesity Annual physical exam Elevated blood pressure reading History of mammogram (~03/16/22) Cervical dysplasia Bipolar affective disorder in full remission Hyperlipidemia Iron deficiency anemia Hypercholesteremia Surgical History History of colonoscopy (~05/03/17) H/O wisdom tooth extraction Family History Brother CHF (congestive heart failure) Diabetes mellitus Father Mother Social History Household Members: Family Patient Tobacco Use Status: Never used Tobacco service: No Current occupational status: employed Questionnaire PHQ-9 Over the last 2 weeks, how often have you been bothered by any of the following problems? 1. Little interest or pleasure in doing things: not at all 2. Feeling down, depressed, or hopeless: not at all 3. Trouble falling or staying asleep, or sleeping too much: not at all 4. Feeling tired or having little energy: not at all 5. Poor appetite or overeating: several days 6. Feeling bad about yourself - or that you are a failure or have let yourself or your family down: not at all 7. Trouble concentrating on things, such as reading the newspaper or watching television: not at all 8. Moving or speaking so slowly that other people could have noticed. Or the opposite - being so fidgety or restless that you have been moving around a lot more than usual: not at all 9. Thoughts that you would be better off or of hurting yourself in some way: not at all Total score: 1 Depression Screening Interpretation: Negative Depression Screening Done: Yes 92612 - PHQ-9 Billing: Yes Source: Developed by Drs. Olvin Webster, Sejal Miguel, Leon Johnson and colleagues, with an educational netta from [employer]. Thrive Questionnaire Date Thrive assessed: 01/20/25 I am a: Patient What is your living situation today?: I have a steady place to live Within the past 12 months, did the food you bought not last and you didn't have the money to get more?: Never true Within the past 12 months, did you worry whether your food would run out before you got money to buy more?: Never true Do you have trouble paying for medicines?: No Do you have trouble getting transportation to medical appointments?: No Do you have trouble paying your heating and electricity bill?: No Do you have trouble taking care of your child, family member or friend?: No Do you have trouble with day-to-day activities such as bathing, preparing meals, shopping, managing finances, etc.?: No Are you currently unemployed and looking for a job?: No Are you interested in more education?: No THRIVE Score: 0 AUDIT C Alcohol Use Questionnaire (AUDIT-C) 1. How often do you have a drink containing alcohol?: 2-4 times a month 2. How many drinks containing alcohol do you have on a typical day when you are drinking?: 1 or 2 3. How often do you have six or more drinks on one occasion?: Never Total Score: 2 Score Reviewed/Action Taken: No EN-7 AMB Questionnaire EN-7 Date EN - 7 assessed: 01/20/25 Feeling nervous, anxious, or on edge: 0 = Not at all Not being able to stop or control worryin = Not at all Worrying too much about different things: 0 = Not at all Trouble relaxin = Not at all Being so restless that it is hard to sit still: 0 = Not at all Becoming easily annoyed or irritable: 0 = Not at all Feeling afraid as if something awful might happen: 0 = Not at all Total EN-7 score (0-4 normal; 5-9 mild; 10-14 moderate; 15-21 severe): 0 Source: Developed by Drs. Olvin Webster, Sejal Miguel, Leon Johnson and colleagues, with an educational netta from [employer]. EN-7 Assessment Billing EN-7 Assessment Tool: EN-7 Assessment 68724 Review of Systems Narrative Review of Systems - Constitutional: Reports difficulty losing weight. - HEENT: Reports subjective difficulty hearing low tones. - Respiratory: Endorses a history of sleep apnea. - Gastrointestinal: Reports loose stools when taking iron, which are improved with a fiber supplement. Const All systems reviewed & are unremarkable except as noted in HPI and below Physical exam (Primary Care) Vital Signs: Last Vital Signs Temp 97 F 01/20/25 11:00 Pulse 75 01/20/25 11:00 BP 169/74 H 01/20/25 11:00 Pulse Ox 98 01/20/25 11:00 Care Plan Goal for BP management: <140/90 at Goal BMI result Body Mass Index 41.2 BMI Assessment/Plan discussion: High BMI High, discussed plan: lifestyle, weight reduction, dietary, physical activity, alcohol moderation and other Tobacco/Smoking Status: Tobacco use Status Patient Tobacco Use Status Never used Tobacco 01/20/25 11:00 PHQ-9: PHQ-9 Score PHQ-9: Total score 1 01/20/25 11:08 Depression Screening Interpretation: Negative Thrive Assessment: Date of Thrive Assessment Date Thrive assessed 01/20/25 01/20/25 11:08 Narrative Physical Exam Appearance: Alert. Oriented X3. No acute distress. Head: Normal external exam. Normocephalic. Atraumatic. Eyes: Pupils are equal, round, and reactive to light. Extraocular movements intact. Conjunctiva and sclera normal. Eyelids normal. Ears: External auditory canal normal. Tympanic membranes normal. No wax noted. Throat: Pharynx normal. Uvula midline. Moist mucous membranes. Neck: Normal inspection. Neck supple. Full range of motion. Cardiovascular: Normal heart rate and rhythm. Heart sound normal. No murmurs noted. Pulses normal throughout. Blood pressure 137/65. Respiratory: No respiratory distress. Painless inspiration. Breath sounds carmen l. No wheezes/rales/rhonchi noted. Chest nontender. No accessory muscle usage noted or decreased air movement noted. Back: Full range of motion noted. Skin: Skin warm and dry. Normal skin color. Normal skin turgor. No rashes/lesions/lacerations noted. Extremities: Extremities exhibit normal range of motion. Neuro: Oriented X 3. No motor deficit. No sensory deficit. Reflexes normal. Office Procedures Flu Questionnaire Does the patient have a severe egg allergy?: No Does the patient have severe life threatening allergies?: No Does the patient have a fever or illness today?: No Has the patient ever had Guillain-[place] Syndrome?: No Has the patient ever had any past reaction to a flu shot?: No Immunizations Fluarix [id number] (PF) 45 mcg (15 mcg x 3)/0.5 mL IM syringe Performing Provider: Keesha Leyva PA-C Performing Location: [facility] Adult [facility] Documented (not given) by: Sara Page on 01/20/25 11:09 Dose Route Admin Location Dispensed Lot Number Expiration Date NDC Melter Operator 0.5 mL IM mL VIS Given Date VIS Provided VIS Publication Date 01/20/25 Single Vaccine 24 Eligibility Eligibility Date Funding Source Results Reviewed Results Reviewed: Results - Labs from March 2023: - CBC: Normal. - CMP: Sodium, potassium, and kidney function were normal. - Liver Enzymes: Normal. - Magnesium: Normal. - Cholesterol: High. - LDL: 122 mg/dL. - Hemoglobin A1c: 4.7%. - Vitamin B12: High. Coding Level of Care Code Est Pt Level 4 (03537) Complex visit Add On G2211 Diagnoses Morbid obesity with BMI of 40.0-44.9, adult E66.01; Z68.41 Sleep apnea G47.30 Hearing difficulty H91.90 Healthcare maintenance Z00.00 Additional Codes PHQ-9 - 08067 - PHQ-9 Billing: Yes ([id number]) EN-7 Assessment Billing - EN-7 Assessment Tool: EN-7 Assessment 47312 ([id number]) Assessment & Plan Assessment & Plan (1) Morbid obesity with BMI of 40.0-44.9, adult: Code(s): E66.01 - Morbid (severe) obesity due to excess calories; Z68.41 - Body mass index [BMI] 40.0-44.9, adult Category: Medical Plan: The patient has a BMI of 41 and has struggled to lose weight independently, prompting a request for pharmacotherapy. A prescription for Zepbound will be sent to the pharmacy, starting at a 2.5 mg subcutaneous injection once weekly. The patient was counseled on injection technique, including rotating sites between the abdomen, back of the arms, and inner thighs. The patient was advised that significant weight loss may not occur until the dose is titrated up to 5 mg in the second month; the patient must call the office monthly for refills and to request dose increases. Potential lack of insurance coverage and wsm-sk-dttloe costs were discussed, with an estimated cost of $350 for the starting dose and $500 for higher doses, and an alternative pharmacy option was provided if necessary. (2) Sleep apnea: Code(s): G47.30 - Sleep apnea, unspecified Category: Medical Plan: The patient endorses a history of sleep apnea, which is believed to be weight-related and is currently untreated. A referral for a home sleep study has been placed, and the company will contact the patient to arrange the test. (3) Hearing difficulty: Code(s): H91.90 - Unspecified hearing loss, unspecified ear Category: Medical Plan: The patient reported difficulty hearing low tones, specifically the 's voice, and suspected cerumen impaction. An otoscopic exam revealed no wax accumulation. A referral for a formal hearing exam was offered, but the patient chose to defer this until after the holidays and will address it at the time of the upcoming physical. (4) Healthcare maintenance: Code(s): Z00.00 - Encounter for general adult medical examination without abnormal findings Category: Medical Plan: The patient has a physical scheduled for April. Comprehensive fasting lab work has been ordered to be completed before the appointment, including a CBC, CMP, lipid panel, hemoglobin A1c, thyroid panel, vitamin B12, vitamin D, and a urinalysis. Plan Plan Patient was informed and verbally consented to the use of an ambient scribe for clinic note documentation during this visit. 1. Obesity The patient has a BMI of 41 and has struggled to lose weight independently, prompting a request for pharmacotherapy. A prescription for Zepbound will be sent to the pharmacy, starting at a 2.5 mg subcutaneous injection once weekly. The patient was counseled on injection technique, including rotating sites between the abdomen, back of the arms, and inner thighs. The patient was advised that significant weight loss may not occur until the dose is titrated up to 5 mg in the second month; the patient must call the office monthly for refills and to request dose increases. Potential lack of insurance coverage and bkq-ch-njtgau costs were discussed, with an estimated cost of $350 for the starting dose and $500 for higher doses, and an alternative pharmacy option was provided if necessary. 2. Sleep Apnea The patient endorses a history of sleep apnea, which is believed to be weight- related and is currently untreated. A referral for a home sleep study has been placed, and the company will contact the patient to arrange the test. 3. Hearing Difficulty The patient reported difficulty hearing low tones, specifically the 's voice, and suspected cerumen impaction. An otoscopic exam revealed no wax accumulation. A referral for a formal hearing exam was offered, but the patient chose to defer this until after the holidays and will address it at the time of the upcoming physical. 4. Health Maintenance The patient has a physical scheduled for April. Comprehensive fasting lab work has been ordered to be completed before the appointment, including a CBC, CMP, lipid panel, hemoglobin A1c, thyroid panel, vitamin B12, vitamin D, and a urinalysis. Discussion Notes I discussed the patient's request for assistance with weight loss and recommended Zepbound, a newer GLP-1/GIP agonist, as an effective option. I provided education on the medication, including its mechanism, administration via once-weekly subcutaneous injection with site rotation, and the dosing schedule, explaining that significant weight loss is more likely at higher doses. The patient was informed to call the office monthly for refills and to request dose escalations. We reviewed the possibility of the medication not being covered by insurance and discussed uqf-mb-slguoo costs, which are approximately $350 for the starting dose and $500 for subsequent doses, and I offered an alternative pharmacy to potentially lower the cost. Due to a history of sleep apnea, I placed a referral for a home sleep study. In response to the patient's hearing concerns, I performed an ear exam, which was normal; we agreed to defer a formal hearing exam until the upcoming physical. I ordered comprehensive labs to be done before the physical in April. Orders: Orders Comprehensive [place]. Panel Fast Today Z00.00 - Encounter for general adult medical examination without abnormal findings Complete Blood Count Auto Diff Today Z00.00 - Encounter for general adult medical examination without abnormal findings Magnesium Today Z00.00 - Encounter for general adult medical examination without abnormal findings Lipid Panel Today Z00.00 - Encounter for general adult medical examination without abnormal findings Hemoglobin A1c Today Z00.00 - Encounter for general adult medical examination without abnormal findings TSH reflex Free T4 Today Z00.00 - Encounter for general adult medical examination without abnormal findings Microalbumin, Random (w Creat) Today E11.9 - Type 2 diabetes mellitus without complications Influenza [id number] Immunization Today Z23 - Encounter for immunization RT home sleep study Today G47.30 - Sleep apnea, unspecified C Reactive Protein Today Z00.00 - Encounter for general adult medical examination without abnormal findings Erythrocyte Sedimentation Rate Today Z00.00 - Encounter for general adult medical examination without abnormal findings UA CC w/rflx Micro + Cult Today Z00.00 - Encounter for general adult medical examination without abnormal findings Vitamin B12 and Folate Today Z00.00 - Encounter for general adult medical examination without abnormal findings Vitamin D 25-OH Total Today Z00.00 - Encounter for general adult medical examination without abnormal findings Medications: New Fluarix [id number] (PF) (flu vac ts 2024-(6mos up)-PF) 0.5 mL IM ONCE 0.5 mL 0RF NS Z23 - Encounter for immunization tirzepatide (weight loss) (Zepbound) for 4 weeks 2.5 mg (0.5 mL) subcut QWEEK 2 mL 0RF E66.01 - Morbid (severe) obesity due to excess calories, E78.00 - Pure hypercholesterolemia, unspecified, E78.5 - Hyperlipidemia, unspecified, G47.30 - Sleep apnea, unspecified, Z68.41 - Body mass index [BMI] 40.0-44.9, adult Patient Instructions: Patient Instructions - You have been prescribed Zepbound for weight loss, starting with the 2.5 mg dose. - Inject this medication once a week under the skin of your stomach, the back of your arms, or your thighs. - Please change the location of your injection each week. - You will need to call our office monthly to get a refill and to ask for a dose increase if you are ready. - Please go to [facility] on [facility] to see if your insurance covers the medication. - If it is too expensive, let our office know, and we can send the prescription to another pharmacy that may be cheaper. - We have sent a referral for a home sleep study. - Please go for fasting bloodwork (nothing to eat or drink for 10-12 hours) before your physical exam in April. - Continue to take your fiber supplement, as this may help with the new medicat ion.
[2025-01-20 11:00] VITALS: BP 169/74; PULSE 75; TEMP 36.1; O2SAT 98; BMI 41.2
[2025-01-20 13:54] VITALS: BP 137/65
--- OUTSIDE RECORDS SUMMARY | 2025-01-20 13:58 | XMS_ITS | Encounter Summary ---
Author Organization [facility] Address [address] [place] [phone] Phone Care Team Providers Care Application Support Technician Name Role Phone Olvin Lechuga DO Primary Care Provider [phone] Nessa Agrawal PA-C Unavailable [phone] Nava Painting MD Unavailable [phone] Encounter Details Date Type Department Care Team (Late st Contact Info) Description 05/03/2017 Procedure Pass [facility] Endoscopy Admitting Dept Virtual Department [address] [place] [address] Social History Tobacco Use Types Packs/Day Years [...] on filedocumented in this encounter Care Teams Application Support Technician Relationship Specialty Start Date End Date Olvin Lechuga DO [address] [place] [address] PCP - General 12/11/16 Nessa Agrawal PA-C [address] [place] [address] [email or web address] Physician Hotel Recreational Facilities Manager Hematology 10/15/17 Nava Painting MD [address] [place] [phone] [email or web address] Hematology and Oncology 06/29/20 documented as of this encounter Additional Source Comments The information contained in this document represents components of the legal health record. It is not the complete legal health record.[facility]
--- OUTSIDE RECORDS SUMMARY | 2025-01-20 13:58 | XMS_ITS | Encounter Summary ---
Author Organization [facility] Address [address] [place] [address] Phone Care Team Providers Care Wire Rope Sling Maker Name Role Phone AnkushOlvin haskins Angus QUINTERO Primary Care Provider Nessa Agrawal PA-C Unavailable [phone] Nava Painting MD Unavailable [phone] Encounter Details Date Type Department Care Team (Latest Contact Info) Description 05/07/2017 Transcribe Orders [facility] Phleb Main [address] [place] [address] Jeffrey Ray MD [address] [place] [phone] [email or web address] Anemia, unspecified type (Primary Dx) Social History [...] EDT) IRON 16(L) 30 - 160 ug/dL [facility] IRON BINDING CAPACITY 386 228 - 428 ug/dL [facility] TRANSFERRIN SATURAT. 4(L) 15 - 50 % [facility] Blood 05/07/2017 7:10 AM EDT 05/07/2017 7:13 AM EDT Jeffrey Ray MD LAB BLOOD BKR ORDERABLES F inal Result [facility] [address] [place] [address] * (ABNORMAL) CBC and differential (05/07/2017 7:10 AM EDT) WBC 7.90 3.40 - 11.20 K/uL [facility] RBC 4.27 3.80 - 4.80 M/uL [facility] HGB 6.7(LL) 12.0 - 15.0 g/dL [facility] Comment: checked by repeat analysis This result has been called to Tom BARBOUR by Rosangela Chauhan on 05 07 2017 at 1253, and has been read back. HCT 27.1(L) 36.0 - 46.0 % [facility] PLT 490(H) 130 - 400 K/uL [facility] MCV 63.5(L) 79.0 - 98.0 fL [facility] MCH 15.7(L) 27.0 - 34.8 pg [facility] MCHC 24.7(L) 31.5 - 36.0 g/dL [facility] RDW 22.9(H) 10.8 - 14.6 % [facility] MPV 8.6(L) 9.4 - 12.4 fl [facility] NRBC 0.00 /100 WBCs [facility] ABSOLUTE NRBC 0.00 K/uL [facility] DIFF METHOD Auto [facility] NEUTS 56.4 45.30 - 77.70 % [facility] LYMPHS 29.1 12.30 - 39.70 % [facility] MONOS 6.6 4.10 - 12.80 % [facility] EOS 6.7 0 - 7.2 % [facility] BASOS 0.9 0 - 2.80 % [facility] Granulocytes, immature (%) 0.3 0.0 - 0.9 % [facility] ABSOLUTE NEUTS 4.46 1.40 - 7.70 K/uL [facility] ABSOLUTE LYMPHS 2.30 0.60 - 3.20 K/uL [facility] ABSOLUTE MONOS 0.52 0.11 - 0.59 K/uL [facility] ABSOLUTE EOS 0.53(H) 0.01 - 0.50 K/uL [facility] ABSOLUTE BASOS 0.07 0.00 - 0.08 K/uL [facility] Granulocytes, immature 0.02 0.00 - 0.05 K/uL [facility] POLYCHROME PRESENT(A ) None [facility] SCHISTOCYTES PRESENT(A ) None [facility] TARGET CELLS OCCASIONA L(A) None [facility] HYPOCHROMIA PRESENT(A ) None [facility] MICROCYTES PRESENT(A ) None [facility] OVALOCYTES PRESENT(A ) None [facility] Blood 05/07/2017 7:10 AM EDT 05/07/2017 7:13 AM EDT Jeffrey Ray MD LAB BLOOD BKR ORDERABLES F inal Result Performing Organization Address City/State/[facility] Co de Phone Number [address] [address] documented in this encounter Visit Diagnoses Diagnosis Anemia, unspecified type- Primary documented in this encounter Care Teams Wire Rope Sling Maker Relationship Specialty Start Date End Date Olvin Lechuga DO [address] [place] [address] PCP - General 12/11/16 Nessa Agrawal PA-C [address] [place] [phone] [email or web address] Physician Electrolysis Engineer Hematology 10/15/17 Nava Painting MD [address] [place] [address] [place] [address] [email or web address] Hematology and Oncology 06/29/20 documented as of this encounter Additional Source Comments The information contained in this document represents components of the legal health record. It is not the complete legal health record.[facility]
--- OUTSIDE RECORDS SUMMARY | 2025-01-20 13:58 | XMS_ITS | Encounter Summary ---
Author Organization [facility] Address [address] [place] [address] Phone Care Team Providers Care Finisher Fib[employer]lass Boat Parts Name Role Phone AnkushOlvin haskins Angus QUINTERO Primary Care Provider Nessa Agrawal PA-C Unavailable [phone] Nava Painting MD Unavailable [phone] Encounter Details Date Type Department Care Team (Latest Contact Info) Description 04/23/2017 Transcribe Orders [facility] Phleb Main [address] [place] [address] Jeffrey Ray MD [address] [place] [address] [email or web address] Normocytic hypochromic anemia (Primary Dx) Social History [...] EST) WBC 7.78 3.40 - 11.20 K/uL [facility] RBC 3.82 3.80 - 4.80 M/uL [facility] HGB 6.0(LL) 12.0 - 15.0 g/dL [facility] Comment:This result has been called to CHRISTELLE Cai by Shanthi Luevano on 04 23 2017 at 1000, and has been read back. HCT 23.4(L) 36.0 - 46.0 % [facility] PLT 457(H) 130 - 400 K/uL [facility] MCV 61.3(L) 79.0 - 98.0 fL [facility] MCH 15.7(L) 27.0 - 34.8 pg [facility] MCHC 25.6(L) 31.5 - 36.0 g/dL [facility] RDW 21.3(H) 10.8 - 14.6 % [facility] MPV 9.3(L) 9.4 - 12.4 fl [facility] NRBC 0.00 /100 WBCs [facility] ABSOLUTE NRBC 0.00 K/uL [facility] Blood 04/23/2017 7:18 AM EST 04/23/2017 7:21 AM EST us Jeffrey Ray MD LAB BLOOD BKR ORDERABLES F inal Result [address] [address] documented in this encounter Visit Diagnoses Diagnosis Normocytic hypochromic anemia- Primary Unspecified iron deficiency anemia documented in this encounter Care Teams Finisher [employer] Relationship Specialty Start Date End Date Olvin Lechuga DO [address] [place] [address] PCP - General 12/11/16 Nessa Agrawal PA-C [address] [place] [address] [email or web address] Physician Electrical Prospecting Operator Hematology 10/15/17 Nava Painting MD [address] [place] [address] [email or web address] Hematology and Oncology 06/29/20 documented as of this encounter Additional Source Comments The information contained in this document represents components of the legal health record. It is not the complete legal health record.[facility]
--- OUTSIDE RECORDS SUMMARY | 2025-01-20 13:58 | XMS_ITS | Encounter Summary ---
Author Organization [facility] Address [address] [place] [address] [address] [place] [address] Phone Care Team Providers Care Firearms Instructor Name Role Phone Olvin Lechuga DO Primary Care Provider [phone] Nessa Agrawal PA-C Unavailable [phone] Nava Painting MD Unavailable [phone] Reason for Referral * MRI/CAT Scan - Closed Specialty Diagnoses / Procedures Referred By Conted t Referred To Contact Radiology Diagnoses Mass of left breast on mammogram Procedures MRI Breast (Bilateral) CHG MRI BREAST WITHOUT&WITH CONTRAST W/CAD BILATERAL Olvin Lechuga DO [address] [place] [address] Phone: tel: fax: Referral ID Status Reason Start Date Expiration Date Visits Re quested Visits Authorized [id number] Closed 08/03/2020 09/02/2020 1 1 Encounter Details Date Type Department Care Team (Late st Contact Info) Description 07/30/2020 Ancillary Orders For Login Purposes Only 15 [facility] Floor 2 [address] [place] [address] Olvin Lechuga DO [address] [place] [address] Mass of left breast on mammogram Social [...] for the next exam. We support the [place] Cancer Society guidelines for early breast cancer [...] with a 3.0 Amalia 750 MR scanner ([employer] ([employer])): 3-plane localizer; axial non fat suppressed T1; [...] obtainedwith a 3.0 Amalia 750 MR scanner ([employer]kin ([employer])): 3-plane localizer; axial non fatsuppressed T1; axial [...] for the next exam. We support the [place] Cancer Society guidelines for early breast cancerdetection [...] mammogram documented in this encounter Care Teams Firearms Instructor Relationship Specialty Start Date End Date Olvin Lechuga DO [address] [place] [address] PCP - General 12/11/16 Nessa Agrawal PA-C [address] [place] [email or web address] Physician Delivery Room Clerk Hematology 10/15/17 Nava Painting MD [address] [place] [address] [email or web address] Hematology and Oncology 06/29/20 documented as of this encounter Additional Source Comments The information contained in this document represents components of the legal health record. It is not the complete legal health record.[facility]
--- OUTSIDE RECORDS SUMMARY | 2025-01-20 13:58 | XMS_ITS | Encounter Summary ---
Author Organization [facility] Address [address] [place] [address] Phone Care Team Providers Care Industrial Roofer Helper Name Role Phone Olvin Lechuga DO Primary Care Provider Nessa Agrawal PA-C Unavailable [phone] Nava Painting MD Unavailable [phone] Encounter Details Date Type Department Care Team (Latest Contact Info) Description 10/01/2018 Transcribe Orders [facility] Phleb [facility] [address] [place] [address] Marissa Mack DO [address] [place] [address] [email or web address] Screening for unspecified condition (Primary Dx) Social [...] Primary documented in this encounter Care Teams Industrial Roofer Helper Relationship Specialty Start Date End Date Olvin Lechuga DO [address] [place] [address] PCP - General 12/11/16 Nessa Agrawal PA-C [address] [place] [address] Physician Nut Chopper Hematology 10/15/17 Nava Painting MD [address] [place] [address] Hematology and Oncology 06/29/20 documented as of this encounter Additional Source Comments The information contained in this document represents components of the legal health record. It is not the complete legal health record.[facility]
--- OUTSIDE RECORDS SUMMARY | 2025-01-20 13:58 | XMS_ITS | Encounter Summary ---
Author Organization [facility] Address [address] [place] [address] Phone Care Team Providers Care Log Turner Name Role Phone AnkushOlvin haskins Angus QUINTERO Primary Care Provider Nessa Agrawal PA-C Unavailable [phone] Nava Painting MD Unavailable [phone] Encounter Details Date Type Department Care Team (Latest Contact Info) Description 09/20/2017 Transcribe Orders [facility] Phleb [place] [address] 2nd [place] [address] Jeffrey Ray MD [address] [address] [email or web address] Iron deficiency anemia, unspecified iron deficiency anemia [...] AM EDT) TESTS REQUESTED [employer] [facility] SPECIMEN/TUBE TYPE ACD (B) [facility] REQUEST RECEIVED Request received. A separate order for the requested test will be generated by the laboratory. [facility] Blood 09/20/2017 10:5 2 AM EDT 09/20/2017 11:58 AM EDT Jeffrey Ray MD LAB BLOOD ORDERABLES Final Result [facility] [address] [place] [address] documented in this encounter Visit Diagnoses Diagnosis Iron deficiency anemia, unspecified iron deficiency anemia type- Primary documented in this encounter Care Teams Log Turner Relationship Specialty Start Date End Date Olvin Lechuga DO [address] [place] [address] PCP - General 12/11/16 Nessa Agrawal PA-C [address] [place] [address] Physician Dog Behaviorist Hematology 10/15/17 Nava Painting MD [address] [place] [address] Hematology and Oncology 06/29/20 documented as of this encounter Additional Source Comments The information contained in this document represents components of the legal health record. It is not the complete legal health record.[facility]
--- OUTSIDE RECORDS SUMMARY | 2025-01-20 13:58 | XMS_ITS | Encounter Summary ---
Author Organization [facility] Address [address] [place] [address] Phone Care Team Providers Care Polisher Numeral Name Role Phone AnkushOlvin haskins Angus QUINTERO Primary Care Provider Nessa Agrawal PA-C Unavailable [phone] Nava Painting MD Unavailable [phone] Encounter Details Date Type Department Care Team (Latest Contact Info) Description 06/01/2017 Transcribe Orders [facility] Phleb [place] [address] 2nd [place] [address] Jeffrey Ray MD [address] [address] [email or web address] Anemia, unspecified type (Primary Dx) Social History [...] FOLIC ACID 13.9 4.2 - 19.9 ng/mL [facility] Blood 06/01/2017 11:1 5 AM EDT 06/01/2017 11:19 AM EDT Jeffrey Ray MD LAB BLOOD BKR ORDERABLES F inal Result Performing Organization Address City/[facility]/ZIP Co de Phone Number [address] [address] * Vitamin B12 (06/01/2017 11:15 AM EDT) VITAMIN B12 883 243 - 894 pg/mL [facility] Blood 06/01/2017 11:1 5 AM EDT 06/01/2017 11:19 AM EDT Jeffrey Ray MD LAB BLOOD BKR ORDERABLES F inal Result Performing Organization Address [facility] Co de Phone Number [address] [address] * (ABNORMAL) Iron and iron binding capacity (06/01/2017 11:15 AM EDT) Pathologist [facility] IRON 27(L) 30 - 160 ug/dL [facility] IRON BINDING CAPACITY 421 228 - 428 ug/dL [facility] TRANSFERRIN SATURAT. 6(L) 15 - 50 % [facility] Blood 06/01/2017 11:1 5 AM EDT 06/01/2017 11:19 AM EDT us Jeffrey Ray MD LAB BLOOD BKR ORDERABLES F inal Result Performing Organization Address [facility]/ZIP Co de Phone Number [address] [address] * (ABNORMAL) CBC (06/01/2017 11:15 AM EDT) WBC 7.63 3.40 - 11.20 K/uL [facility] RBC 4.53 3.80 - 4.80 M/uL [facility] HGB 7.4(L) 12.0 - 15.0 g/dL [facility] HCT 28.7(L) 36.0 - 46.0 % [facility] PLT 423(H) 130 - 400 K/uL [facility] MCV 63.4(L) 79.0 - 98.0 fL [facility] MCH 16.3(L) 27.0 - 34.8 pg [facility] MCHC 25.8(L) 31.5 - 36.0 g/dL [facility] RDW 23.4(H) 10.8 - 14.6 % [facility] MPV 8.9(L) 9.4 - 12.4 fl [facility] NRBC 0.00 /100 WBCs [facility] ABSOLUTE NRBC 0.00 K/uL [facility] Blood 06/01/2017 11:1 5 AM EDT 06/01/2017 11:19 AM EDT us Jeffrey Ray MD LAB BLOOD BKR ORDERABLES F inal Result [facility] [address] [place] [address] * Gliadin deamidated antibody, IgG/IgA (06/01/2017 11:15 AM EDT) Gliadin Ab, IGA <10.0 <20.0 (Negative) U [facility] DPT OF LAB MED AND PAT+ GLIADIN AB IGG <10.0 <20.0 (Negative) U [facility] DPT OF LAB MED AND PAT+ Blood 06/01/2017 11:1 5 AM EDT 06/01/2017 11:20 AM EDT Jeffrey Ray MD LAB BLOOD ORDERABLES Final Result [facility] DPT OF LAB MED AND PAT+ [address] [place] [address] * Tissue transglutaminase IgA (06/01/2017 11:15 AM EDT) TTG IGA ANTIBODY <1.2 <4.0 (Negative) U/mL [facility] DPT OF LAB MED AND PAT+ Blood 06/01/2017 11:1 5 AM EDT 06/01/2017 11:20 AM EDT Jeffrey Ray MD LAB BLOOD BKR ORDERABLES F inal Result Performing Organization Address City/[facility]/ZIP Co de Phone Number [facility] DPT OF LAB MED AND PAT+ [address] [place] [address] * Immunoglobulin A (06/01/2017 11:15 AM EDT) IgA 276 70 - 400 mg/dL [facility] Blood 06/01/2017 11:1 5 AM EDT 06/01/2017 11:19 AM EDT Jeffrey Ray MD LAB BLOOD BKR ORDERABLES F inal Result Performing Organization Address [facility] Co de Phone Number [facility] [address] [place] [address] documented in this encounter Visit Diagnoses Diagnosis Anemia, unspecified type- Primary documented in this encounter Care Teams Polisher Numeral Relationship Specialty Start Date End Date Olvin Lechuga DO [address] [place] [address] PCP - General 12/11/16 Nessa Agrawal PA-C [address] [place] [address] Physician Agricultural Equipment Design Engineer Hematology 10/15/17 Nava Painting MD [address] [place] [address] Hematology and Oncology 06/29/20 documented as of this encounter Additional Source Comments The information contained in this document represents components of the legal health record. It is not the complete legal health record.[facility]
--- OUTSIDE RECORDS SUMMARY | 2025-01-20 13:58 | XMS_ITS | Encounter Summary ---
Author Organization [facility] Address [address] [place] [address] Phone Care Team Providers Care Vineyard Tender Name Role Phone Olvin Lechuga DO Primary Care Provider [phone] Nessa Agrawal PA-C Unavailable [phone] Nava Painting MD Unavailable [phone] Encounter Details Date Type Department Care Team (Late st Contact Info) Description 07/30/2020 Procedure Pass [facility], Yang [address] [facility], 2nd [place] [address] Social History Tobacco Use Types Packs/Day Years [...] on filedocumented in this encounter Care Teams Vineyard Tender Relationship Specialty Start Date End Date Olvin Lechuga DO [address] [place] [address] PCP - General 12/11/16 Nessa Agrawal PA-C [address] [place] [address] [email or web address] Physician Heat Treating Furnace Tender Hematology 10/15/17 Nava Painting MD [address] [place] [address] [email or web address] Hematology and Oncology 06/29/20 documented as of this encounter Additional Source Comments The information contained in this document represents components of the legal health record. It is not the complete legal health record.[facility]
--- OUTSIDE RECORDS SUMMARY | 2025-01-20 13:58 | XMS_ITS | Encounter Summary ---
Author Organization [facility] Address [address] [place] [address] Phone Care Team Providers Care Retail Field Representative Name Role Phone Olvin Lechuga DO Primary Care Provider Nessa Agrawal PA-C Unavailable Nava Painting MD Unavailable [phone] Encounter Details Date Type Department Care Team (Late st Contact Info) Description 02/14/2022 Ancillary Orders [facility] [address] Charge Out Clerk [address] [place] [address] Olvin Lechuga, [address] [place] [address] Screening breast examination Social History Tobacco Use [...] examination documented in this encounter Care Teams Retail Field Representative Relationship Specialty Start Date End Date Olvin Lechuga DO [address] [place] [address] PCP - General 12/11/16 Nessa Agrawal, PEACEC [address] [place] [address] Physician Heavy Antiarmor Weapons Infantryman Hematology 10/15/17 Nava Painting MD [address] [place] [address] [email or web address] Hematology and Oncology 06/29/20 documented as of this encounter Additional Source Comments The information contained in this document represents components of the legal health record. It is not the complete legal health record.[facility]
--- OUTSIDE RECORDS SUMMARY | 2025-01-20 13:58 | XMS_ITS | Encounter Summary ---
Author Organization [facility] Address [address] [place] [address] [address] [place] [address] Phone Care Team Providers Care Hand Coke Drawer Name Role Phone Olvin Lechuga DO Primary Care Provider [phone] Nessa Agrawal PA-C Unavailable [phone] Nava Painting MD Unavailable [phone] Encounter Details Date Type Department Care Team (Late st Contact Info) Description 02/14/2022 Procedure Pass [facility] [address] [facility] [address] [place] [address] Social History Tobacco Use Types Packs/Day Years [...] on filedocumented in this encounter Care Teams Hand Coke Drawer Relationship Specialty Start Date End Date Olvin Lechuga DO [address] [place] [address] PCP - General 12/11/16 Nessa Agrawal PA-C [address] [place] [address] [email or web address] Physician Blueprint Reader Hematology 10/15/17 Nava Painting MD [address] [place] [address] [email or web address] Hematology and Oncology 06/29/20 documented as of this encounter Additional Source Comments The information contained in this document represents components of the legal health record. It is not the complete legal health record.[facility]
--- OUTSIDE RECORDS SUMMARY | 2025-01-20 13:59 | XMS_ITS | Clinical Summary ---
Author Organization [facility] Address [address] [place] [address] Phone Care Team Providers Care Technology Resource Teacher Name Role Phone AnkushMelisa Angus QUINTERO Primary Care Provider Nessa Agrawal PA-C Unavailable [phone] Nava Painting MD Unavailable [phone] Allergies Active Allergy Reactions Criticality Noted Date Comments Penicillins 04/12/2017 Medications * This document contains information received from the source organization and may not represent a complete record from that organization. ARIPiprazole (ABILIFY) 30 MG tablet Take 1 tablet (30 mg total) by mouth daily. 15 tablet 1 12/21/2020 Active ferrous sulfate 325 mg (65 mg assinibo[place] and [place] tribes iron) tablet Take 1 tablet (325 mg [...] 02/23/2021, 01/11/2020, Additional history exists COVID-19 VACCINE (2024- season) 2024 12/16/2021, 08/11/2021, 02/23/2021, Additional history exists COLONOSCOPY 05/04/2027 05/03/2017 COLORECTAL CANCER SCREENING 05/04/2027 LIPID PANEL 03/31/2028 03/31/2023, 02/26, 04/11/2017 RSV VACCINE (1 - 1-dose 75+ series) 12/08/2039 SMOKING STATUS SCREENING (Once After 26 Yrs) [...] (03/31/2023 8:48 AM EST) HDL 61 mg/dL [facility] Comment: Interpretation <40 mg/dL: Low HDL cholesterol (major risk factor for CHD) Greater than or equal to 60 mg/dL: High HDL cholesterol ( negative risk factor for CHD) HDL - cholesterol is affected by a number of factors, e.g. smoking, excerise, hormones, sex and age. CHOLESTEROL 160 0 - 240 mg/dL [facility] TRIGLYCERIDES 81 30 - 160 mg/dL [facility] LDL 83 50 - 129 mg/dL [facility] Comment: LDL levels in terms of risk for coronary heart disease: <100 mg/dL: Optimal 100-129 mg/dL: Near or above optimal 130-159 mg/dL: Borderline high 160-189 mg/dL: High >190 mg/dL: Very High CARDIAC RISK RATIO 2.6(L) 3.3 - 4.4 [facility] Blood 03/31/2023 8:48 AM EST 03/31/2023 8:52 AM EST us Melisa Velasquez DO LAB BLOOD BKR ORDERABLES Fin al Result [facility] [address] [place], [place] [id number] * BI MAMMOGRAM SCREENING WITH TOMOSYNTHESIS WITH [...] 52 Admit Type: Outpatient Gender: Female Room: [place] [address] Referring MD: MELISA VELASQUEZ Exam Type: Colonoscopy [...] monitored continuously. The Olympus adult variable colonoscope [id number] #2 was introduced through the anus and [...] 1:41 PM Procedure Code(s): --- Professional --- 66414, Colonoscopy, flexible; with biopsy, single or multiple --- Technical --- 56758, Colonoscopy, flexible; with biopsy, single or multiple Diagnosis Code(s): --- Professional --- K63.89, Other specified diseases of intestine D50.9, Iron deficiency anemia, unspecified --- Technical --- K63.89, Other specified diseases of intestine D50.9, Iron deficiency anemia, unspecified CPT copyright 2016 [employer]. All rights reserved. The codes documented in this report are preliminary and upon car rental manager reviewmay be revised to meet current compliance requirements. [address] [place] [address] us Melisa Zhaoman GI PROCEDURE ORDERABLES Devi l Result from Last 3 Months or Most Recently Relevant to Health Maintenance [place] [address] [place] [address] [place] [address] [place] [address] [place] [address] [place] [address] [place] [address] Advance Directives For more information, please contact: [phone] (9AM - 5PM [facility], Sunday-Sunday) Documents on File Type Date Recorded Patient Machine Preservative Filler Expl anation Legal Guardianship 12/22/2020 5:34 PM * Full Code (Latest Code Status on File) Date Activated Date Inactivated Comments 10/01/2020 9:53 PM Question Answer Comments Code Status Confirmed With: Patient Care Teams Technology Resource Teacher Relationship Specialty Start Date End Date Melisa Velasquez DO [address] [place] [address] PCP - General 12/11/16 Nessa Agrawal PA-C [address] [place] [email or web address] Physician Last Waxer Hematology 10/15/17 Nava Painting MD [address] [place] [address] Hematology and Oncology 06/29/20 Additional Source Comments The information contained in this document represents components of the legal health record. It is not the complete legal health record.[facility]
--- OUTSIDE RECORDS SUMMARY | 2025-01-20 13:59 | XMS_ITS | Encounter Summary ---
Author Organization [facility] Address [address] [place] [address] Phone Care Team Providers Care Ruby On Rails Software Developer Name Role Phone Olvin Lechuga DO Primary Care Provider [phone] Nessa Agrawal PA-C Unavailable [phone] Nava Painting MD Unavailable [phone] Encounter Details Date Type Department Care Team (Late st Contact Info) Description 03/15/2017 Procedure Pass [facility] Endoscopy Admitting Dept Virtual Department [address] [place] [address] Social History Tobacco Use Types Packs/Day Years [...] on filedocumented in this encounter Care Teams Ruby On Rails Software Developer Relationship Specialty Start Date End Date Olvin Lechuga DO [address] [place] [address] PCP - General 12/11/16 Nessa Agrawal PA-C [address] [place] [address] [email or web address] Physician Organic Section Technical Lead Hematology 10/15/17 Nava Painting MD [address] [place] [address] [email or web address] Hematology and Oncology 06/29/20 documented as of this encounter Additional Source Comments The information contained in this document represents components of the legal health record. It is not the complete legal health record.[facility]
--- OUTSIDE RECORDS SUMMARY | 2025-01-20 13:59 | XMS_ITS | Encounter Summary ---
Author Organization [facility] Address [address] [place] [address] Phone Care Team Providers Care Instrumentation Manager Name Role Phone AnkushOlvin haskins Angus QUINTERO Primary Care Provider [phone] Nessa Agrawal PA-C Unavailable [phone] Nava Painting MD Unavailable [phone] Encounter Details Date Type Department Care Team (Latest Contact Info) Description 05/09/2019 Transcribe Orders [facility] at [address] [address] Katharina Garcia [place] [address] [place] [address] [email or web address] Iron deficiency anemia (Primary Dx) Social History [...] EDT) SODIUM 142 133 - 146 mmol/L [facility] POTASSIUM 4.3 3.3 - 5.1 mmol/L [facility] CHLORIDE 104 96 - 108 mmol/L [facility] CO2 26 21 - 35 mmol/L [facility] BUN 17 6 - 19 mg/dL [facility] CREATININE 0.80 0.5 - 1.5 mg/dL [facility] GLUCOSE 80 70 - 99 mg/dL [facility] ALBUMIN 4.4 3.9 - 4.8 g/dL [facility] TOTAL PROTEIN 7.6 6.5 - 8.0 g/dL [facility] CALCIUM 9.7 8.4 - 10.3 mg/dL [facility] ALKALINE PHOSPHATASE 75 39 - 117 U/L [facility] TOTAL BILIRUBIN <0.2 0.0 - 1.2 mg/dL [facility] AST 18 0 - 37 U/L [facility] ALT 17 0 - 40 U/L [facility] GLOBULIN 3.2 1 - 4.8 g/dL [facility] EGFR 84 >59 mL/min/1.7 3m2 [facility] Comment:If patient is black, multiply result by 1.159. Estimated glomerular filtration rate calculated using the CKD-EPI equation. ANION GAP 16 10 - 20 mmol/L [facility] Blood 06/30/2019 11:2 4 AM EDT 06/30/2019 11:38 AM EDT us Margie Jones SOCIAL SCIENCES CHAIR LAB BLOOD BKR ORDERABLES Final Result [address] [address] documented in this encounter Visit Diagnoses Diagnosis Iron deficiency anemia- Primary Unspecified iron deficiency anemia documented in this encounter Care Teams Instrumentation Manager Relationship Specialty Start Date End Date Olvin Lechuga DO [address] [place] [address] PCP - General 12/11/16 Nessa Agrawal, PEACEC [address] [place] [address] [email or web address] Physician Trap Puller Hematology 10/15/17 Nava Painting MD [address] [place] [address] [email or web address] Hematology and Oncology 06/29/20 documented as of this encounter Additional Source Comments The information contained in this document represents components of the legal health record. It is not the complete legal health record.[facility]
--- OUTSIDE RECORDS SUMMARY | 2025-01-20 13:59 | XMS_ITS | Encounter Summary ---
Author Organization [facility] Address [address] [place] [address] Phone Care Team Providers Care Oracle Ebs Architect Name Role Phone Olvin Lechuga DO Primary Care Provider Nessa Agrawal PA-C Unavailable [phone] Nava Painting MD Unavailable [phone] Encounter Details Date Type Department Care Team (Late st Contact Info) Description 04/11/2017 Ancillary Orders [facility], X-Ray - [facility] [address] [place] [address] Olvin Lechuga, DO [address] [place] [address] Bronchitis Social History Tobacco Use Types Packs/Day [...] chronic documented in this encounter Care Teams Oracle Ebs Architect Relationship Specialty Start Date End Date Olvin Lechuga DO [address] [place] [address] PCP - General 12/11/16 Nessa Agrawal PA-C [address] [place] [address] Physician Performance Improvement Specialist Hematology 10/15/17 Nava Painting MD [address] [place] [address] Hematology and Oncology 06/29/20 documented as of this encounter Additional Source Comments The information contained in this document represents components of the legal health record. It is not the complete legal health record.[facility]
--- OUTSIDE RECORDS SUMMARY | 2025-01-20 13:59 | XMS_ITS | Encounter Summary ---
Author Organization [facility] Address [address] [place] [address] Phone Care Team Providers Care Automotive Dismantler Name Role Phone Olvin Lechuga DO Primary Care Provider [phone] Nessa Agrawal PA-C Unavailable [phone] Nava Painting MD Unavailable [phone] Encounter Details Date Type Department Care Team (Late st Contact Info) Description 12/20/2017 Procedure Pass [facility] Endoscopy Admitting Dept Virtual Department [address] [place] [address] Social History Tobacco Use Types Packs/Day Years [...] on filedocumented in this encounter Care Teams Automotive Dismantler Relationship Specialty Start Date End Date Olvin Lechuga DO [address] [place] [address] PCP - General 12/11/16 Nessa Agrawal PA-C [address] [place] [address] Physician Rn Transition Hematology 10/15/17 Nava Painting MD [address] [place] [address] Hematology and Oncology 06/29/20 documented as of this encounter Additional Source Comments The information contained in this document represents components of the legal health record. It is not the complete legal health record.[facility]
--- OUTSIDE RECORDS SUMMARY | 2025-01-20 13:59 | XMS_ITS | Encounter Summary ---
Author Organization [facility] Address [address] [place] [address] Phone Care Team Providers Care Hop Separator Name Role Phone Olvin Lechuga DO Primary Care Provider [phone] Nessa Agrawal PA-C Unavailable [phone] Nava Painting MD Unavailable [phone] Encounter Details Date Type Department Care Team (Latest Contact Info) Description 04/11/2017 Transcribe Orders [facility] Phleb Main [address] [place] [address] Olvin Lechuga, [address] [place] [address] Catarrhal bronchitis (Primary Dx); Hyperlipidemia, unspecified hyperlipidemia [...] BPM [facility] Atrial Rate 90 B[facility] MS Interval 132 ms [facility] QRS Duration 82 ms [facility] QT Interval 358 ms [facility] QTC Interval 437 ms [facility] P [place] 25 degrees [facility] R Wave [place] -22 degrees [facility] T Wave [place] 54 degrees [facility] 04/11/2017 8:37 AM EST 04/11/2017 1:36 PM EST Narrative [facility] - 04/11/2017 1:36 PM EST Sinus rhythm with Premature supraventricular complexes Otherwise normal ECG No previous ECGs available Confirmed by WILMAN ORR MD ([id number]) on 04/11/2017 1:36:40 PM us Olvin Lechuga DO ECG ORDERABLES Final Result [facility] * TSH (04/11/2017 7:49 AM EST) TSH 2.17 0.27 - 4.20 uIU/mL [facility] Blood 04/11/2017 7:49 AM EST 04/11/2017 7:50 AM EST us Olvin Lechuga DO LAB BLOOD BKR ORDERABLES Fin al Result [address] [id number] * Comprehensive metabolic panel (04/11/2017 7:49 AM EST) SODIUM 141 133 - 146 mmol/L [facility] POTASSIUM 4.3 3.3 - 5.1 mmol/L [facility] CHLORIDE 104 96 - 108 mmol/L [facility] CO2 25 21 - 35 mmol/L [facility] BUN 12 6 - 19 mg/dL [facility] CREATININE 0.70 0.5 - 1.5 mg/dL [facility] GLUCOSE 99 70 - 99 mg/dL [facility] ALBUMIN 4.0 3.9 - 4.8 g/dL [facility] TOTAL PROTEIN 6.8 6.5 - 8.0 g/dL [facility] CALCIUM 8.7 8.4 - 10.3 mg/dL [facility] ALKALINE PHOSPHATASE 66 39 - 117 U/L [facility] TOTAL BILIRUBIN 0.3 0 - 1.2 mg/dL [facility] AST 14 0 - 37 U/L [facility] ALT 12 0 - 40 U/L [facility] GLOBULIN 2.8 1 - 4.8 g/dL [facility] EGFR >60 >60 mL/min/1.7 3m2 [facility] Comment:Abnormal if <60. If patient is -Armenian, multiply the result by 1.21. ANION GAP 16 10 - 20 mmol/L [facility] Blood 04/11/2017 7:49 AM EST 04/11/2017 7:50 AM EST us Olvin Lechuga DO LAB BLOOD BKR ORDERABLES Fin al Result Performing Organization Address [facility]/ZIP Co de Phone Number [address] [address] * (ABNORMAL) Lipid panel (04/11/2017 7:49 AM EST) HDL 65 mg/dL [facility] Comment: Interpretation: Risk Level Females Decreased >55mg/dL Average 50-55 mg/dL Increased <50 mg/dL CHOLESTEROL 173 0 - 240 mg/dL [facility] TRIGLYCERIDES 64 30 - 160 mg/dL [facility] LDL 95 50 - 129 mg/dL [facility] Comment: LDL levels in terms of risk for coronary heart disease: <100 mg/dL: Optimal 100-129 mg/dL: Near or above optimal 130-159 mg/dL: Borderline high 160-189 mg/dL: High >190 mg/dL: Very High CARDIAC RISK RATIO 2.7(L) 3.3 - 4.4 C [facility] Blood 04/11/2017 7:49 AM EST 04/11/2017 7:50 AM EST us Olvin Lechuga LAB BLOOD BKR ORDERABLES Fin al Result Performing Organization Address [facility] Co de Phone Number [address] [address] * (ABNORMAL) CBC and differential (04/11/2017 7:49 AM EST) WBC 7.17 3.40 - 11.20 K/uL [facility] RBC 3.70(L) 3.80 - 4.80 M/uL [facility] HGB 5.8(LL) 12.0 - 15.0 g/dL [facility] Comment:This result has been called to RAMA Downey by Rosangela Chauhan on 04 11 2017 at 0921, and has been read back. HCT 22.5(L) 36.0 - 46.0 % [facility] PLT 441(H) 130 - 400 K/uL [facility] MCV 60.8(L) 79.0 - 98.0 fL [facility] MCH 15.7(L) 27.0 - 34.8 pg [facility] MCHC 25.8(L) 31.5 - 36.0 g/dL [facility] RDW 18.9(H) 10.8 - 14.6 % [facility] MPV 9.1(L) 9.4 - 12.4 fl [facility] NRBC 0.00 /100 WBCs [facility] ABSOLUTE NRBC 0.00 K/uL [facility] DIFF METHOD Auto [facility] NEUTS 63.0 45.30 - 77.70 % [facility] LYMPHS 23.6 12.30 - 39.70 % [facility] MONOS 6.7 4.10 - 12.80 % [facility] EOS 5.6 0 - 7.2 % [facility] BASOS 0.8 0 - 2.80 % [facility] Granulocytes, immature (%) 0.3 0.0 - 0.9 % [facility] ABSOLUTE NEUTS 4.52 1.40 - 7.70 K/uL [facility] ABSOLUTE LYMPHS 1.69 0.60 - 3.20 K/uL [facility] ABSOLUTE MONOS 0.48 0.11 - 0.59 K/uL [facility] ABSOLUTE EOS 0.40 0.01 - 0.50 K/uL [facility] ABSOLUTE BASOS 0.06 0.00 - 0.08 K/uL [facility] Granulocytes, immature 0.02 0.00 - 0.05 K/uL [facility] HYPOCHROMIA MARKED(A) None [facility] OVALOCYTES PRESENT(A) None [facility] Blood 04/11/2017 7:49 AM EST 04/11/2017 7:50 AM EST us Olvin Lechuga DO LAB BLOOD BKR ORDERABLES Fin al Result [facility] [address] [place] [address] documented in this encounter Visit Diagnoses Diagnosis Catarrhal bronchitis- Primary Bronchitis, not specified as acute or chronic Hyperlipidemia, unspecified hyperlipidemia type Hypercholesterolemia Pure hypercholesterolemia Hypercholesterolemia Pure hypercholesterolemia documented in this encounter Care Teams Hop Separator Relationship Specialty Start Date End Date Olvin Lechuga, [address] [place] [address] PCP - General 12/11/16 Nessa Agrawal PA-C [address] [place] [address] [email or web address] Physician Lactation Specialist Hematology 10/15/17 Nava Painting MD [address] [place] [address] Hematology and Oncology 06/29/20 documented as of this encounter Additional Source Comments The information contained in this document represents components of the legal health record. It is not the complete legal health record.[facility]
== END 2025-01-20 11:37 | disposition home or self-care (01) ==
LOC: HO.HMCSH 10:47
PROVIDERS: PCP Physician Assistant Medical; Visit Provider Physician Assistant Medical
DX: E66.01 Morbid (severe) obesity due to excess calories (principal); Z68.41 Body mass index [BMI] 40.0-44.9, adult; G47.30 Sleep apnea, unspecified; H91.90 Unspecified hearing loss, unspecified ear; Z00.00 Encounter for general adult medical examination without abnormal findings; Z23 Encounter for immunization

== ENCOUNTER → 2025-01-20 10:47 | Outpatient (BNVA) | payer BC, SELFPAY | PROVIDERS: PCP Physician Assistant Medical; Visit Provider Physician Assistant Medical | DX: Z00.00 Encounter for general adult medical examination without abnormal findings (principal); E66.01 Morbid (severe) obesity due to excess calories; H91.90 Unspecified hearing loss, unspecified ear; G47.30 Sleep apnea, unspecified; Z68.41 Body mass index [BMI] 40.0-44.9, adult | CPT/HCPCS: 90471; 96127 ==